=== PATIENT | male | born 1945 | race Caucasian/White ===

== ENCOUNTER 2024-07-23 22:55 | Inpatient (IN) | payer OTHER, SELFPAY ==
[2024-07-23 17:24] VITALS: BP 173/82
[2024-07-23 18:09] VITALS: BMI 25.6
[2024-07-23] MEDS: NSS 1000 IV (18:31)
[2024-07-23] MEDS: ZOFRAN 4 MG IV (18:31)
[2024-07-23] MEDS: MORPHINE SULFATE 4 MG IV (18:32)
[2024-07-23 19:07] LABS: ALT (SGPT) 21 U/L (0-50); AST (SGOT) 23 U/L (17-59); Albumin 5.1 g/dl (3.5-5.0); Alkaline Phosphatase 84 U/L (38-126); Blood Urea Nitrogen 24 mg/dl (9-20); Calcium 10.3 mg/dl (8.4-10.2); Carbon Dioxide 23 mmol/L (22-30); Chloride 101 mmol/L (98-107); Estimated Creatinine Clearance 49 ml/min; Glucose 237 mg/dl (70-99); Lipase 127 U/L (23-300); Potassium 4.9 mmol/L (3.5-5.1); Sodium 140 mmol/L (135-145); Total Bilirubin 0.7 mg/dl (0.2-1.3); Total Protein 7.4 g/dl (6.3-8.2); eGFR > 60.00
[2024-07-23 19:15] LABS: % Basophils 0.3 % (0-2); % Eosinophils 0.1 % (0-6); % Immature Granulocytes 0.3 % (0-0.5); % Lymphocytes 7.4 % (20.5-51.1); % Neutrophils 87.9 % (42.2-75.2); Absolute Lymphocytes 0.6 10^3/uL (1.2-3.4); Absolute Monocytes 0.3 10^3/uL (0.1-0.6); Absolute Neutrophils 6.8 10^3/uL (1.4-6.5); Hematocrit 35.2 % (39.0-52.0); Mean Corp Hgb Conc. 34.1 g/dL (33.0-37.0); Mean Corpuscular Hgb 28.6 pg (27.0-31.0); Mean Platelet Volume 12.3 fL (7.4-10.4); Nucleated Red Blood Cells % 0 % (-); Platelet Count 127 10^3/uL (130-400); Red Blood Cell Count 4.19 10^6/uL (4.70-6.10); Red Cell Dist. Width 13.7 % (11.5-14.5); White Blood Cell Count 7.7 10^3/uL (4.8-10.8)
--- NOTE | 2024-07-23 19:30 | EDRN ---
Report received, introduced myself to patient and , adjusted IV for them, other swenson patient resting comfortably.
--- NOTE | 2024-07-23 19:57 | ED.GENMED ---
History of Present Illness
General
Chief Complaint: Abdominal Symptoms
Time Seen by Provider: 07/23/24 17:37
History of Present Illness
History of Present Illness:
78-year-old male with history of hypertension, diabetes, dementia presenting to the emergency department for generalized abdominal pain. Patient arrives with who notes that since today he has been complaining of abdominal pain and nausea, has
been spitting up. She reports that he had a similar issue about a year ago, had been diagnosed with choledocholithiasis, and became septic from it. He still has his gallbladder in place. Also reports history of pancreatitis in the past. Patient
very limited historian given dementia. No reported recent fever. Patient denying any chest pain or difficulty breathing. No additional surgical history in the past.
Past History
Past History
ED Past Medical History: CAD, HTN, Hypercholesterolemia, NIDDM and Other (Dementia)
ED Past Surgical History: Appendectomy, Cardiac and Other (Hernia repair)
Phy Exam
Physical Exam
Physical Exam:
General: Well-appearing, no clinical signs of dehydration, nontoxic and in no acute distress
HEENT: protecting airway
Neck: appears supple
CV: Normal heart rate, regular rhythm
Resp: No accessory muscle use, no increased work of breathing, lungs clear to auscultation bilaterally
Abd: Soft and non-distended, generalized tenderness, mild distention
Extremities: No deformities, no swelling, no erythema
Neuro: alert, no focal neurologic deficit
: deferred
Rectal: deferred
Psych: Normal affect
Skin: Intact
Course
Orders/Labs/Results
Orders:
Orders
07/23/24 18:12
CT Abd/pelvis W Iv Cont Urgent
Comment:
Reason For Exam: diffuse abdominal pain
0.9% Sodium Chloride 1000 ml [Nss] 1,000 ml IV BOLUS
Morphine Sulfate 4 mg IV NOW STA
Ondansetron Injectable [Zofran] 4 mg IV NOW STA
07/23/24 18:28
Complete Blood Count/With Diff Urgent
07/23/24 18:29
Comprehensive Metabolic Panel Urgent
Lipase Urgent
07/23/24 20:22
HYDROmorphone [Dilaudid] 1 mg IV NOW STA
Abnormal Lab Results
07/23/24 07/23/24
18:28 18:29
RBC 4.19 L 10^6/uL
(4.70-6.10)
Hgb 12.0 L g/dL
(13.0-18.0)
Hct 35.2 L %
(39.0-52.0)
Plt Count 127 L 10^3/uL
(130-400)
MPV 12.3 H fL
(7.4-10.4)
Absolute Neuts (auto) 6.8 H 10^3/uL
(1.4-6.5)
Absolute Lymphs (auto) 0.6 L 10^3/uL
(1.2-3.4)
Neutrophils % 87.9 H %
(42.2-75.2)
Lymphocytes % 7.4 L %
(20.5-51.1)
BUN 24 H mg/dl
(9-20)
Glucose 237 H mg/dl
(70-99)
Calcium 10.3 H mg/dl
(8.4-10.2)
Albumin 5.1 H g/dl
(3.5-5.0)
07/23/24 18:28
07/23/24 18:29
Vital Signs
Initial and Last Documented VS:
Initial Vital Signs
Temp Pulse Resp BP Pulse Ox
98.0 F 65 16 173/82 98
07/23/24 17:24 07/23/24 17:24 07/23/24 17:24 07/23/24 17:24 09/09/24 17:24
Last Documented Vital Signs
Temp Pulse Resp BP Pulse Ox
98.0 F 65 16 160/83 97
07/23/24 17:24 07/23/24 17:24 07/23/24 17:24 07/23/24 21:01 07/23/24 21:01
MDM/Problems Addressed
MDM/Problems Addressed:
78-year-old male with history of dementia, hypertension, and diabetes presenting to the emergency department for abdominal pain and nausea/vomiting, onset today. Vital signs are significant for hypertension.
On exam, patient is in no acute distress, however does appear uncomfortable, spitting up. He is a very limited historian, generalized tenderness to lower abdomen with distention. Concern for intra-abdominal pathology. For this reason we will
obtain urinalysis and CT abdominal imaging. IV fluids, Zofran, morphine administered for patient's symptoms.
20:20 -patient's labs are unremarkable, however still complaining of pain. Will redose. Pending CT abdominal imaging
21:00 - CT shows cholelithiasis and again concern for possible choledocholithiasis. Given persistence of pain and prior history, will admit for MRCP/ERCP. GI made aware
*Critical Care Note
Total Time (30-74mins, 75-104mins- exclusive of procedures): Not Applicable
ED Attending Note
-
Portions of this chart may have been created with voice recognition software.� Occasional wrong word or��sound alike� substitutions may have occurred due to the inherent limitations of voice recognition software.
Discharge Plan
Departure
Prescriptions:
No Action
cyanocobalamin (vitamin B-12) [Vitamin B-12] 1,000 mcg Tablet
1,000 mcg PO HS Qty: 0
aspirin 81 mg Tablet,Delayed Release (Dr/Ec)
81 mg PO DAILY Qty: 0
atenolol 50 mg Tablet
50 mg PO DAILY Qty: 0
rosuvastatin 40 mg Tablet
40 mg PO HS
memantine 5 mg Tablet
5 mg PO BID Qty: 0
mirtazapine 30 mg Tablet
30 mg PO HS Qty: 30 0RF
Patient Comments:
09/29/2023: Per Spouse, Pt's dr increased to 45mg
pioglitazone 30 mg Tablet
30 mg PO DAILY Qty: 30 0RF
insulin glargine [Lantus Solostar U-100 Insulin] 100 unit/mL (3 mL) Insulin Pen
6 unit SC DAILY
Paxlovid 300 mg (150 mg x 2)-100 mg tablets,dose pack
See Rx Instructions .ROUTE .COMPLEX Qty: 30 0RF
Rx Instructions:
take TWO 150 mg tablets of nirmatrelvir with ONE 100 mg tablet of ritonavir twice daily for 5 days
Referrals:
Aram Mojica DO [Family Provider] -
Interventions
Interventions:
*Risk Screen - Suicide Last Done: 07/23/24 18:10
*General Assessment Last Done: 07/23/24 18:10
*Neglect/Abuse Screening Last Done: 07/23/24 18:10
ED- Fall Risk Assessment Last Done: 07/23/24 19:00
*ED COVID-19 Vaccine History Last Done: 07/23/24 18:10
IM-Bfrygk-Vuenzwzoor Assessment Last Done: 07/23/24 18:40
Discharge Date and Time
Print Language: MONGOLIAN
[2024-07-23 20:44] VITALS: BP 175/84
[2024-07-23] MEDS: DILAUDID 1 MG IV (20:49)
--- NOTE | 2024-07-23 20:55 | EDRN ---
Patient was having increased pain, once back from CT, gave pain meds as ordered.
[2024-07-23 21:01] VITALS: BP 160/83
--- NOTE | 2024-07-23 21:14 | HPS.HSE ---
Family Physician
-
Family Physician: Aram Mojica
Chief Complaint
-
abdominal pain associated with N/V
History of Present Illness
78-year-old male with history of hypertension, diabetes, dementia presenting to the emergency department for epigastric pain. Patient arrives with who notes that since today he has been complaining of abdominal pain and nausea. denied vomiting
and diarrhea. denied fever, chills, chest pain, sob. denied HARRIS, dizzy or syncopal episode. denied dysuria or hematuria. Patient very limited historian given dementia.
CT with choledocholithiasis. admitting for further management.
Medical History
Past Medical History
Past Medical History: Reports Other
Additional Past Medical History:
HTN
HLD
dementia
DM
alzheimers
gallstone pancreatitis
Past Surgical History: Reports Other
Additional Past Surgical History:
appendectomy
cardiac stents
quad bypass
cholecystectomy
Social History
Tobacco: Non-smoker
Alcohol: None
Drug: None
Personal:
Living: With Family
Family History
Family History: Not pertinent
Allergies / Home Medications
Allergies reflects when Allergies were last updated in [facility].
Home Medications with original date entered in [facility]
Allergy/Medication List:
Allergies
Allergy/AdvReac Type Severity Reaction Status Date / Time
Sulfa (Sulfonamide Allergy Unknown Verified 07/23/24 17:26
Antibiotics)
Home Medications
aspirin 81 mg tablet,delayed release 81 mg PO DAILY Blood Clot Prevention/Tx ##0 08/27/23
atenolol 50 mg tablet 50 mg PO DAILY Blood Pressure ##0 08/27/23
cyanocobalamin (vitamin B-12) 1,000 mcg tablet (Vitamin B-12) 1,000 mcg PO HS Supplement ##0 08/27/23
rosuvastatin 40 mg tablet 40 mg PO HS High Cholesterol 08/27/23
mirtazapine 30 mg tablet 30 mg PO HS Depression #30 tabs 09/04/23
pioglitazone 30 mg tablet 30 mg PO DAILY Diabetes #30 tabs 09/04/23
insulin glargine 100 unit/mL (3 mL) subcutaneous pen (Lantus Solostar U-100 Insulin) 7 unit SC QPM 11/01/23
insulin aspart U-100 100 unit/mL (3 mL) subcutaneous pen (Novolog FlexPen U-100 Insulin aspart) 5 unit SC AC 07/23/24
memantine 10 mg tablet 10 mg PO BID 07/23/24
Review of Systems
-
Constitutional: Reports No Symptoms
EENT: Reports No Symptoms
Respiratory: Reports No Symptoms
Cardiac: Reports No Symptoms
Abdomen/GI: Reports Abdominal Pain and Nausea
: Reports No Symptoms
Musculoskeletal: Reports No Symptoms
Skin: Reports No Symptoms
Neurological: Reports No Symptoms
Endocrine: Reports No Symptoms
Hematologic/Lymphatic: Reports No Symptoms
Psych: Reports No Symptoms
Physical Exam
Vital Signs
Vital Signs
Temp Pulse Resp BP Pulse Ox
98.0 F 65 16 160/83 97
07/23/24 17:24 07/23/24 17:24 07/23/24 17:24 07/23/24 21:01 07/23/24 21:01
Physical Exam
General: Well Developed, Well Nourished and No Apparent Distress
HEENT: NormoCephalic, Moist mucous membranes and Atraumatic
Respiratory: Clear
Cardiac: S1/S2 and Regular Rhythm; No Murmur or Rub
GI: Soft, Non Tender, Non Distended and Normal Bowel Sounds; No Organomegaly
Rectal: Deferred by Provider
Musculoskeletal: No Clubbing, No Cyanosis and No Edema
Skin: No Rash
Neuro: Nonfocal/grossly intact
Psych: Confused
Laboratory Results
-
07/23/24 18:28
07/23/24 18:29
Laboratory Results
Total Bilirubin 0.7 mg/dl (0.2-1.3) 07/23/24 18:29
AST 23 U/L (17-59) 07/23/24 18:29
ALT 21 U/L (0-50) 07/23/24 18:29
Alkaline Phosphatase 84 U/L (38-126) 07/23/24 18:29
Lipase 127 U/L (23-300) 07/23/24 18:29
Data Reviewed
-
CT Scan: Report Reviewed by me
Impression/Plan
-
#abdominal pain associated with N/V likely from choledocholithiasis
-Possible MRCP/ERCP
-keep NPO
-fluids continued for hydration
-Dilaudid prn for pain
-GI consult
-CT abdomen pelvis with Cholelithiasis and findings suspicious for choledocholithiasis.Apparent attenuation of the left portal vein. Cannot rule out portal vein thrombosis.
#anemia of chronic disease
-hgb stable at 12.0
-no active bleeding
-ctm
#alzhmier's dementia
-memantine, Remeron continued
#HLD
-statin continued
#essential HTN
-Bp stable
-atenolol continued with hold parameter
#type 2 Dm
-sliding scale
-hold NovoLog and Lantus with meals
-sliding scale
#DVT prophylaxis
-Lovenox
#CODE status
-DNR
--- NOTE | 2024-07-23 22:35 | HPS.HSE ---
Addendum entered and electronically signed by Joe Goldberg DO 07/23/24 23:27:
Patient seen and examined independently. Agree with findings an plan as set forth by LAWRENCE Miller.
Patient is a 78y M with PMH significant for dementia, hypertension and DM-II who presents to ED complaining of abdominal pain. History obtained from family at the bedside. notes that patient developed RUQ pain today. No N/V. No noted
fevers / chills. He had admission for cholecystitis / choledocholithiasis in 10/2023. He underwent ERCP with sphincterotomy and stent placement at that time. Eventual cholecystectomy was recommended. Patient has had no similar issues until
today. No other acute complaints or concerns.
Ass:
Cholelithiasis +/- Choledocholithiasis
ASCVD
Benign Hypertension
Dyslipidemia
DM-II
Senile Dementia
Plan:
Admit for further evaluation and treatment.
Supportive care, pain control, etc.
LFTs are normal. CT findings for stones +/- choledocholithiasis.
GI evaluation in the AM.
? MRCP v ERCP. ? Surgery evaluation / cholecystectomy for definitive treatment.
Original Note:
Family Physician
-
Family Physician: Aram Mojica
Chief Complaint
-
abdominal pain
History of Present Illness
78 year old with PMH for alzhmeirs, htn, hld, DM, gallstone pancreatitis, presented to us with left sided abdominal pain since this morning. denied vomiting or diarrhea. stated nauseous. denied fever, chills, chest pain, sob.denied HARRIS, dizzy or
syncopal episode. denied dysuria or hematuria.
CT with choledocholithiasis. admitting for further management.
Medical History
Past Medical History
Past Medical History: Reports Other
Additional Past Medical History:
alzhmiers dementia
HTN
HLD
DM
Past Surgical History: Reports Other
Additional Past Surgical History:
appendectomy
cardiac stents
quad bypass
Social History
Tobacco: Non-smoker
Alcohol: None
Drug: None
Personal:
Living: With Family
Family History
Family History: Not pertinent
Allergies / Home Medications
Allergies reflects when Allergies were last updated in [facility].
Home Medications with original date entered in [facility]
Allergy/Medication List:
Allergies
Allergy/AdvReac Type Severity Reaction Status Date / Time
Sulfa (Sulfonamide Allergy Unknown Verified 07/23/24 17:26
Antibiotics)
Home Medications
aspirin 81 mg tablet,delayed release 81 mg PO DAILY Blood Clot Prevention/Tx ##0 08/27/23
atenolol 50 mg tablet 50 mg PO DAILY Blood Pressure ##0 08/27/23
cyanocobalamin (vitamin B-12) 1,000 mcg tablet (Vitamin B-12) 1,000 mcg PO HS Supplement ##0 08/27/23
rosuvastatin 40 mg tablet 40 mg PO HS High Cholesterol 08/27/23
mirtazapine 30 mg tablet 30 mg PO HS Depression #30 tabs 09/04/23
pioglitazone 30 mg tablet 30 mg PO DAILY Diabetes #30 tabs 09/04/23
insulin glargine 100 unit/mL (3 mL) subcutaneous pen (Lantus Solostar U-100 Insulin) 7 unit SC QPM 11/01/23
insulin aspart U-100 100 unit/mL (3 mL) subcutaneous pen (Novolog FlexPen U-100 Insulin aspart) 5 unit SC AC 07/23/24
memantine 10 mg tablet 10 mg PO BID 07/23/24
Review of Systems
-
Constitutional: Reports No Symptoms
EENT: Reports No Symptoms
Respiratory: Reports No Symptoms
Cardiac: Reports No Symptoms
Abdomen/GI: Reports Abdominal Pain
: Reports No Symptoms
Musculoskeletal: Reports No Symptoms
Skin: Reports No Symptoms
Neurological: Reports No Symptoms
Endocrine: Reports No Symptoms
Hematologic/Lymphatic: Reports No Symptoms
Psych: Reports No Symptoms
Physical Exam
Vital Signs
Vital Signs
Temp Pulse Resp BP Pulse Ox
98.0 F 65 16 160/83 97
07/23/24 17:24 07/23/24 17:24 07/23/24 17:24 07/23/24 21:01 07/23/24 21:01
Physical Exam
General: Well Developed, Well Nourished and No Apparent Distress
HEENT: NormoCephalic, Moist mucous membranes and Atraumatic
Respiratory: Clear
Cardiac: S1/S2 and Regular Rhythm; No Murmur or Rub
GI: Soft, Non Tender, Non Distended and Normal Bowel Sounds; No Organomegaly
Rectal: Deferred by Provider
Musculoskeletal: No Clubbing, No Cyanosis and No Edema
Skin: No Rash
Neuro: AO x 3 and Nonfocal/grossly intact
Psych: Calm
Laboratory Results
-
07/23/24 18:28
07/23/24 18:29
Laboratory Results
Total Bilirubin 0.7 mg/dl (0.2-1.3) 07/23/24 18:29
AST 23 U/L (17-59) 07/23/24 18:29
ALT 21 U/L (0-50) 07/23/24 18:29
Alkaline Phosphatase 84 U/L (38-126) 07/23/24 18:29
Lipase 127 U/L (23-300) 07/23/24 18:29
Data Reviewed
-
CT Scan: Report Reviewed by me
Lab Data: Labs Reviewed by me
Impression/Plan
-
#abdominal pain likely from choledocholithiasis
-CT with Cholelithiasis and findings suspicious for choledocholithiasis. Apparent attenuation of the left portal vein. Cannot rule out portal vein thrombosis.
-NPO
-fluids continued for hydration
-GI consulted for MRCP/ERCP
-Dilaudid prn for pain
#hxt of ERCP with sphincterotomy stone remove and stent placement. stent removed on 11/05
#Coronary Artery Disease s/p Cardiac Stents in 2004 and subsequent CABG in 2012
-asa continued
#Essential Hypertension
-atenolol continued with hold parameter
Hyperlipidemia
-Hold statin in setting of elevated LFTs
Diabetes Mellitus, Type II
-hold NovoLog with meals and Actos
-hold Lantus
-sliding scale
-ctm
#Dementia
-Monitor for mood/behavior changes during hospitalization
-memantine and Remeron continued
#HLD
-statin continued
DVT proph: lovenox
Code Status: DNR
--- NOTE | 2024-07-23 23:13 | EDRN ---
Dr. Goldberg at bedside seeing patient, after that patient is to go upstairs
[2024-07-23 23:53] VITALS: BMI 24.1
[2024-07-24 00:09] LABS: Glucose - Point of Care 222 mg/dl (70-99)
[2024-07-24] MEDS: REMERON 30 MG PO (00:12)
[2024-07-24] MEDS: CRESTOR 40 MG PO (00:12)
[2024-07-24] MEDS: NSS 1000 IV ×2 (00:43→14:09)
[2024-07-24] MEDS: DILAUDID 1 MG IV ×3 (00:43→16:23)
[2024-07-24] MEDS: NOVOLOG FLEXPEN-MODERATE RESISTANCE 3 UNITS SC ×3 (01:41→17:44)
--- NOTE | 2024-07-24 02:58 | PTCARENOTE ---
Pt arrived to unit via stretcher from ED. Pt's and son stayed for initial assessment and assisted with answers. Pt has hx of dementia, AAO to self. reports pt has become increasingly more frustrated with not being able to have his way and
has wondered off from home for longer distances the past wk. Pt is uncooperative with some care at this time with personal care and refusing assistance from staff. Pt has poor safety awareness and unsteady gait. Bed alarm is placed and high falls.
Pt is not using his call paulson . Bed in lowest position and call paulson is within reach bed alarm activated.
[2024-07-24 05:51] VITALS: BP 137/66
[2024-07-24 06:03] LABS: Glucose - Point of Care 202 mg/dl (70-99)
--- NOTE | 2024-07-24 06:53 | CON.GI ---
Addendum entered and electronically signed by Shekhar Forrest DO 07/24/24 12:36:
I saw and examined the patient.
The ACID WASH OPERATOR's note was reviewed and I agree with the note.
Comment: Mr. Kay is a 78 y.o male with past medical history of HTN, HLD, NIDDM, hx of CAD s/p prior CABG, thrombocytopenia, chronic dementia and history of choledocholithiasis complicated by ascending cholangitis with E coli bacteremia and
biliary / gallstone pancreatitis (s/p ERCP 08/2023 w/ sphincterotomy and stent placement, s/p repeat ERCP 10/2023 with stent removal) who presented to the ED with abdominal pain. History is quite limited due to his mental status and chronic
dementia. In speaking with family, further prior surgical intervention was postponed given his prolonged hospitalization with sepsis and deconditioning since that time. Notes previous abdominal pain back in November but self-resolved in one day
(lasted few hours). No further recurrent abdominal since this current presentation. Now with severe, epigastric abdominal pain with associated nausea/vomiting. Afebrile and HD-stable in ED with grossly normal labs including LFTs with AST 23, ALT 21,
ALP 84 and T Bili 0.7 along with lipase 127. CBC without leukocytosis with WBC 7.7, Hgb 12.[address] Abd/pelvis w/ IV contrast revealed cholelithiasis and borderline CBD duct dilatation up to 8 mm concerning for filling defects within
distal CBD (versus post-cholecystectomy) along with attenuation of the left PV and unable to rule out PVT along with few scattered incidental hypoattenuating hepatic lesions (felt 2/2 cysts). Etiology suspicious for recurrent choledocholithiasis
given CT findings with possible filling defect and biliary ductal dilatation with an intact GB with stones. However, LFTs remain wnl without any evidence of biliary obstruction. Unclear if there is a PVT as patient is without any prior chronic liver
disease / cirrhosis and would expect elevations in transaminases if this was an acute PVT. For both of these reasons, patient would benefit from further evaluation with a MRI/MRCP WWO contrast to better evaluate his biliary tree along with ensuring
patent vasculature. If MRI is limited (due to movement given his dementia), could consider obtaining Abd US w/ Duplex as well but prefer obtaining MRI/MRCP. Otherwise, no symptoms at this time to suggest biliary sepsis and/or cholangitis.
Recommendations:
- Trend LFTs with total fractionated bilirubin q daily
- Agree with MRI/MRCP WWO contrast for further evaluation. If MRI/MRCP is limited (due to motion), could consider Abd US w/ Duplex if unable to tolerate MRI given patient's mental status, but prefer MRI/MRCP
- No indication for IV abx at this time
- Monitor closely for leukocytosis, fevers, or other signs of decompensation
- If MRI/MRCP does reveal recurrent choledocholithiasis, will discuss timing of ERCP along with eventual surgical consultation for consideration of lap betty
- Pt's updated by Tiki Toledo NP. Will continue to update family once MRI/MRCP is obtained
- Rest of care as outlined below
Inpatient GI team will continue to follow along closely.
Original Note:
Consultation
-
Date/Time Consultation Requested: 07/23/24 2330
Date/Time Consultation Performed: 07/24/24 0700
Requesting Provider: Joe Goldberg DO
Performing Provider: LAWRENCE Mendoza, Shekhar Forrest DO
Reason for Consultation: abdominal pain
Medical History
Chief Complaint / HPI
Chief Complaint: abdominal pain
History of Present Illness:
Pt is a 78yo with hx CAD prior CABG, HTN, hyperlipidemia, NIDDM, former ETOH use til 1 year ago, thrombocytopenia, dementia with hx cholangitis with ecoli bacteremia in August 2023 with ERCP with choledocholithiasis with sphincterotomy and stone
removal with stent placement. Pt returned in October for stent removal and recommended surgical evaluation. He now returns with abdominal pain and nausea. On admission noted with bili 0.7, AST 23, ALT 21, alk phos [address] on
admission with concern for cholelithiasis with suspicion for choledocholithiasis with CBD 8mm and gallbladder with small stone. Also noted portal vein attenuation cannot rule out PVT.
At this time patient with dementia unable to provide history. In reviewing with family long recovery from sepsis. He did have one episode of abdominal pain in November for a few hours then resolved. Per surgical evaluation was held as pt
had prolonged recovery with sepsis with wt loss and has now recovered. He now returns with abdominal pain started at 10 am 07/23. Pain was associated with spitting up but no note fever or vomiting. No decreased appetite, change in stool or urine
color, diarrhea, constipation, blood or black in stool leading up to pain.
Past Medical History
Past Medical History: CAD, HTN, Hypercholesterolemia, NIDDM, Psychiatric (dementia) and Other (cholangitis with Ecoli bacteremia, gallstone panc., s/p ERCP with sphincterotomy, stone removal and stent placement, thrombocytopenia, former ETOH use)
Past Surgical History: Appendectomy and Cardiac (CABG)
Social History
Tobacco: Non-Smoker
Alcohol: Former (stopped 1 year ago )
Drug: None
Personal:
Living: With Family
Employment: Retired
Family History
Family History: Reviewed & Not Pertinent
Allergies / Home Medications
Allergy/AdvReac Type Severity Reaction Status Date / Time
Sulfa (Sulfonamide Allergy Unknown Verified 07/23/24 17:26
Antibiotics)
�Medication �Instructions �Recorded
aspirin 81 mg tablet,delayed 81 mg PO DAILY Blood Clot 08/27/23
release Prevention/Tx ##0
atenolol 50 mg tablet 50 mg PO DAILY Blood Pressure ##0 08/27/23
cyanocobalamin (vitamin B-12) 1,000 mcg PO HS Supplement ##0 08/27/23
1,000 mcg tablet (Vitamin B-12)
rosuvastatin 40 mg tablet 40 mg PO HS High Cholesterol 08/27/23
mirtazapine 30 mg tablet 30 mg PO HS Depression #30 tabs 09/04/23
pioglitazone 30 mg tablet 30 mg PO DAILY Diabetes #30 tabs 09/04/23
insulin glargine 100 unit/mL (3 7 unit SC QPM 11/01/23
mL) subcutaneous pen (Lantus
Solostar U-100 Insulin)
insulin aspart U-100 100 unit/mL 5 unit SC AC 07/23/24
(3 mL) subcutaneous pen (Novolog
FlexPen U-100 Insulin aspart)
memantine 10 mg tablet 10 mg PO BID 07/23/24
Review of Systems
-
Unable to obtain full review of systems at this time due to: Dementia
History Source: Patient and Family
Constitutional: Reports Weight Loss (with sepsis in August but gained weight back )
EENT: Reports No Symptoms
Abdomen/GI: Reports Abdominal Pain and Nausea
: Reports No Symptoms
Musculoskeletal: Reports No Symptoms
Skin: Reports No Symptoms
Neurological: Reports Weakness
Endocrine: Reports No Symptoms
Hematologic/Lymphatic: Reports No Symptoms
Vital Signs
Temp Pulse Resp BP Pulse Ox
99.6 F 71 16 137/66 100
07/23/24 23:53 07/24/24 05:51 07/24/24 05:51 07/24/24 05:51 07/23/24 23:53
Physical Exam
Exam
General: Well Developed, Well Nourished and No Apparent Distress
HEENT: Normocephalic and Anicteric
Respiratory: Clear
Cardiac: Regular Rhythm
GI: Soft, Non Distended and Tender (epigastric tenderness )
Musculoskeletal: No Clubbing and No Cyanosis
Skin: Warm and Dry
Neuro: Awake, Alert and AO x 3
Psych: Calm
Results
WBC 7.7 10^3/uL (4.8-10.8) 07/23/24 18:28
Hgb 12.0 g/dL (13.0-18.0) L 07/23/24 18:28
Hct 35.2 % (39.0-52.0) L 07/23/24 18:28
MCV 84.0 fL (80.0-94.0) 07/23/24 18:
Plt Count 127 10^3/uL (130-400) L 07/23/24 18:
Absolute Neuts (auto) 6.8 10^3/uL (1.4-6.5) H 07/23/24 18:
Sodium 140 mmol/L (135-145) 07/23/24 18:
Potassium 4.9 mmol/L (3.5-5.1) 07/23/24 18:
Chloride 101 mmol/L (98-107) 07/23/24 18:
Carbon Dioxide 23 mmol/L (22-30) 07/23/24 18:
BUN 24 mg/dl (9-20) H 07/23/24 18:
Creatinine 1.2 mg/dL (0.7-1.3) 07/23/24 18:
Calcium 10.3 mg/dl (8.4-10.2) H 07/23/24 18:
Total Bilirubin 0.7 mg/dl (0.2-1.3) 07/23/24 18:
AST 23 U/L (17-59) 07/23/24 18:
ALT 21 U/L (0-50) 07/23/24 18:
Alkaline Phosphatase 84 U/L (38-126) 07/23/24 18:
Lipase 127 U/L (23-300) 07/23/24 18:
Diagnostic Image Results:
07/23/24 CT Abd/pelvis W Iv Cont
1. Cholelithiasis and findings suspicious for choledocholithiasis.
2. Apparent attenuation of the left portal vein. Cannot rule out portal vein thrombosis.
Prior GI Procedures:
Colonoscopy: Hx colonoscopy [place] several years.
ERCP08/2023 [facility] Adolph - Normal esophagus.
- No gross lesions in the entire stomach.
- Significantly congested duodenal mucosa.
- The major papilla was adjacent to a diverticulum.
- The major papilla appeared to be small.
- A filling defect consistent with a stone was seen on
the cholangiogram.
- The common bile duct was mildly dilated.
- Choledocholithiasis was found. Complete removal was
accomplished by biliary sphincterotomy and balloon
extraction.
- A biliary sphincterotomy was performed.
- Major papilla was successfully dilated.
- The biliary tree was swept.
- One plastic stent was placed into the common bile
duct.
ERCP:10/2023 Pradip Farfan,
- One stent from the biliary tree was seen in the
major papilla.
- Prior biliary sphincterotomy appeared open.
- Cholecystolithiasis was found.
- One stent was removed from the biliary tree.
- The biliary tree was swept and sludge and nothing
were found.
Assessment / Plan
-
Pt is a 78yo with hx CAD prior CABG, HTN, hyperlipidemia, NIDDM, former ETOH use til 1 year ago, thrombocytopenia, dementia with hx cholangitis with ecoli bacteremia in August 2023 with ERCP with choledocholithiasis with sphincterotomy and stone
removal with stent placement. Pt returned in October for stent removal and recommended surgical evaluation. He now returns with abdominal pain and nausea. On admission noted with bili 0.7, AST 23, ALT 21, alk phos [address] on
admission with concern for cholelithiasis with suspicion for choledocholithiasis with CBD 8mm and gallbladder with small stone. Also noted portal vein attenuation cannot rule out PVT.
-epigastric abdominal pain
-CT with cholelithiasis possible choledocholithiasis and possible PVT
-hx ecoli sepsis with cholangitis choledocholithiasis s/p ERCP with stone removal and stent placement 09/05 with follow up stent removal 10/2023
other med problems:
-thrombocytopenia
-hx prior ETOH use
-dementia
-CAD with prior CABG
-NIDDM
-HTN
-hyperlipidemia
PLAN:
etiology of pain related to choledocholithiasis, cholecystitis, PVT vs other
still with pain today
await AM labs stable on admission - cont to trend
plan for MRI/ MRCP for further eval - if + stone may need repeat ERCP
NPO
I reviewed with updated Tori [phone] - would like to review MRI then decide on further testing-- she is considering surgical eval pending MRI results
-
-
Thank you for consultation and allowing me to participate in the patient's care. Please call the community service organization director GI physician during the after hours with any questions or concerns.
[2024-07-24 07:00] VITALS: BP 115/67
[2024-07-24 07:34] LABS: Hematocrit 34.1 % (39.0-52.0); Hemoglobin 11.8 g/dL (13.0-18.0); Mean Corp Hgb Conc. 34.6 g/dL (33.0-37.0); Mean Corpuscular Hgb 28.6 pg (27.0-31.0); Mean Corpuscular Volume 82.6 fL (80.0-94.0); Mean Platelet Volume 11.9 fL (7.4-10.4); Platelet Count 119 10^3/uL (130-400); Red Blood Cell Count 4.13 10^6/uL (4.70-6.10); Red Cell Dist. Width 13.7 % (11.5-14.5); White Blood Cell Count 10.8 10^3/uL (4.8-10.8)
[2024-07-24 07:55] LABS: Blood Urea Nitrogen 18 mg/dl (9-20); Carbon Dioxide 22 mmol/L (22-30); Chloride 102 mmol/L (98-107); Estimated Creatinine Clearance 61 ml/min; Glucose 178 mg/dl (70-99); Potassium 4.3 mmol/L (3.5-5.1); Sodium 140 mmol/L (135-145); eGFR > 60.00
[2024-07-24 08:25] LABS: ALT (SGPT) 17 U/L (0-50); AST (SGOT) 19 U/L (17-59); Albumin 4.6 g/dl (3.5-5.0); Alkaline Phosphatase 78 U/L (38-126); Direct Bilirubin 0.2 mg/dl (0.0-0.4); Lipase 59 U/L (23-300); Total Bilirubin 0.7 mg/dl (0.2-1.3); Total Protein 6.6 g/dl (6.3-8.2)
[2024-07-24] MEDS: ASPIR LOW (ENTERIC COATED) 81 MG PO (08:33)
[2024-07-24] MEDS: NAMENDA 10 MG PO ×2 (08:34→20:12)
[2024-07-24] MEDS: TENORMIN 50 MG PO (08:34)
--- NOTE | 2024-07-24 09:07 | W.PN.HOSP.TC ---
Today's Communication/Plan
-
For MRCP today
Assessment / Plan
Assessment / Plan
HPI: 78y M with PMH significant for dementia, hypertension and DM-II who presents to ED complaining of abdominal pain. History obtained from family at the bedside. notes that patient developed RUQ pain today. No N/V. No noted fevers /
chills. He had admission for cholecystitis / choledocholithiasis in 10/2023. He underwent ERCP with sphincterotomy and stent placement at that time.
#Cholelithiasis with suspected choledocholithiasis
#Hx of ERCP with sphincterotomy stone remove and stent placement. stent removed on 11/05
Appreciate GI input, patient for MRCP today
#Coronary Artery Disease s/p Cardiac Stents in 2004 and subsequent CABG in 2012
-asa continued
#Essential Hypertension
-atenolol continued with hold parameter
Hyperlipidemia
-Hold statin
Diabetes Mellitus, Type II
-A1C 7.1, Resume Lantus
-hold NovoLog with meals and Actos
-sliding scale
#Dementia
-Monitor for mood/behavior changes during hospitalization
-memantine and Remeron continued
#HLD
-statin continued
DVT proph: lovenox
Code Status: DNR
Updated at bedside 07/24
Total time spent to see the patient on the floor, examine the patient, review data and lab results, discuss treatment plan with patient, nursing staff around 40 minutes.
Physical Exam
General: No acute distress
HEENT: Normocephalic, Atraumatic, EOMI, MMM
Respiratory: Clear to Auscultation bilaterally
Cardiac: Normal S1/S2, Regular Rate and Rhythm
GI: Soft, tender at right upper quadrant, Nondistended, Normal Bowel Sounds
Extremities: No Clubbing, Cyanosis, or Edema
Neuro: Pleasantly confused
Psych: Calm, Cooperative
Derm: No Visible lesions
Anticipated Discharge: 24 - 48 hours
Subjective/Interval History
-
Date of Service: July 24, 2024
Patient reports right upper quadrant abdominal pain. No fever, no vomiting.
Objective Data
-
Labs:
Laboratory Results
07/24/24 07/24/24
06:11 06:12
WBC 10.8
Hgb 11.8 L
Hct 34.1 L
Plt Count 119 L
Sodium 140
Potassium 4.3
Chloride 102
Carbon Dioxide 22
BUN 18
Creatinine 1.0
Glucose 178 H
Calcium 10.0
Total Bilirubin 0.7
AST 19
ALT 17
Alkaline Phosphatase 78
Vital Signs:
Vital Signs
Temp Pulse Resp BP Pulse Ox
97.8 F 90 18 115/67 96
07/24/24 07:00 07/24/24 07:00 07/24/24 07:00 07/24/24 07:00 07/24/24 07:00
I&O
07/23/24 07/24/24 07/25/24
06:59 06:59 06:59
Intake Total 480 / 480
Balance 480 / 480
[2024-07-24 09:23] LABS: Glycohemoglobin (HgbA1c) 7.1 % (4.0-5.6)
[2024-07-24 12:04] LABS: Glucose - Point of Care 199 mg/dl (70-99)
--- NOTE | 2024-07-24 13:32 | W.PN.UPDATE ---
Addendum entered and electronically signed by LAWRENCE Coppola 07/24/24 15:37:
spoke with discussed sedation with MRI if US not helpful. LFT's remains normal
Addendum entered and electronically signed by LAWRENCE Coppola 07/24/24 13:49:
I left message for with update
Original Note:
Update Note
Progress Note Update
Pt unable to tolerate MRI will change to US with doppler may need to consider EUS if unrevealing
[2024-07-24] MEDS: NOVOLOG FLEXPEN-MODERATE RESISTANCE 1 UNITS SC (14:06)
--- NOTE | 2024-07-24 14:34 | CM ---
Met with pt, his daughter and other family members at bedside
Pt with dementia, confused. Lives with his daughter Tori in a 2 story [place]; 1 step to enter, 15 steps to 2nd fl
Pt can ambulate without device, feeds self, some assist with bathing/dressing
Has aid 2x's/wk for 2 hrs thru [employer]
DME - shower chair
SNF - denies past hx
HH - has had [facility] in past
Has ride at d/c
PCP - Aram Mojica
Pharm - [facility]
PT/OT pending
Plan - anticipate home with VN vs no needs
[2024-07-24 15:00] VITALS: BP 134/63
[2024-07-24 17:42] LABS: Glucose - Point of Care 200 mg/dl (70-99)
[2024-07-24] MEDS: LANTUS 0.07 UNITS SC (17:43)
[2024-07-24] MEDS: LOVENOX SC (17:44)
[2024-07-24] MEDS: LOVENOX 40 MG SC (17:48)
[2024-07-24] MEDS: CRESTOR PO ×2 (21:35→23:13)
[2024-07-24] MEDS: REMERON PO ×2 (21:35→23:13)
[2024-07-24 23:10] VITALS: BP 140/58
[2024-07-25] VITALS (7 sets, daily range): BP systolic 125–163; BP diastolic 53–87
[2024-07-25 00:16] LABS: Glucose - Point of Care 163 mg/dl (70-99)
[2024-07-25] MEDS: NOVOLOG FLEXPEN-MODERATE RESISTANCE 1 UNITS SC ×2 (00:22→05:55)
[2024-07-25] MEDS: NSS 1000 IV ×2 (04:32→22:27)
[2024-07-25 05:55] LABS: Glucose - Point of Care 183 mg/dl (70-99)
[2024-07-25 06:31] LABS: Hematocrit 34.7 % (39.0-52.0); Hemoglobin 11.9 g/dL (13.0-18.0); Mean Corp Hgb Conc. 34.3 g/dL (33.0-37.0); Mean Corpuscular Hgb 29.4 pg (27.0-31.0); Mean Corpuscular Volume 85.7 fL (80.0-94.0); Mean Platelet Volume 12.3 fL (7.4-10.4); Platelet Count 105 10^3/uL (130-400); Red Blood Cell Count 4.05 10^6/uL (4.70-6.10); Red Cell Dist. Width 13.8 % (11.5-14.5); White Blood Cell Count 11.8 10^3/uL (4.8-10.8)
[2024-07-25 06:39] LABS: INR 1.31; PT 16.1 Sec (11.4-14.6)
[2024-07-25 07:16] LABS: ALT (SGPT) 14 U/L (0-50); AST (SGOT) 18 U/L (17-59); Albumin 4.1 g/dl (3.5-5.0); Alkaline Phosphatase 75 U/L (38-126); Blood Urea Nitrogen 16 mg/dl (9-20); Calcium 9.4 mg/dl (8.4-10.2); Carbon Dioxide 22 mmol/L (22-30); Chloride 102 mmol/L (98-107); Direct Bilirubin 0.2 mg/dl (0.0-0.4); Estimated Creatinine Clearance 55 ml/min; Glucose 172 mg/dl (70-99); Potassium 4.3 mmol/L (3.5-5.1); Sodium 139 mmol/L (135-145); Total Bilirubin 1.4 mg/dl (0.2-1.3); Total Protein 6.3 g/dl (6.3-8.2); eGFR > 60.00
--- NOTE | 2024-07-25 08:25 | W.PN.GI.CBS2 ---
Today's Communication / Plan
-
Abd US limited/incomplete as below, unable to get MRI/MRCP. Plan for EUS +/- ERCP with Dr. Farfan today given concern for recurrent choledocholithiasis. Recommend general surgery consultation for consideration of lap betty. Rest of care as outlined
below. Discussed with family extensively this AM.
Assessment / Plan
-
#Epigastric Abdominal Pain
#CT c/f Choledocholithiasis
#Hx of Choledocholithiasis c/b
#Ascending Cholangitis w/ E Coli Bacteremia (s/p ERCP 08/2023)
#Cholelithiasis
#Hx of CABG
Mr. Kay is a 78 y.o male with past medical history of HTN, HLD, NIDDM, hx of CAD s/p prior CABG, thrombocytopenia, chronic dementia and history of choledocholithiasis complicated by ascending cholangitis with E coli bacteremia and biliary /
gallstone pancreatitis (s/p ERCP 08/2023 w/ sphincterotomy and stent placement, s/p repeat ERCP 10/2023 with stent removal) who presented to the ED with abdominal pain. History is quite limited due to his mental status and chronic dementia. In
speaking with family, he was recommended for a lap betty during his previous hospitalization but surgical intervention was postponed given his prolonged hospitalization with sepsis and deconditioning since that time. Family reports previous
abdominal pain back in November but self-resolved in one day (lasted few hours). No further recurrent abdominal since this current presentation. Now with severe, epigastric abdominal pain with associated nausea/vomiting. Afebrile and HD-stable in ED
with grossly normal labs including LFTs with AST 23, ALT 21, ALP 84 and T Bili 0.7 along with lipase 127. CBC without leukocytosis with WBC 7.7, Hgb 12.0 [address]
CT Abd/pelvis 07/23/24 w/ IV contrast revealed cholelithiasis and borderline CBD duct dilatation up to 8 mm concerning for filling defects within distal CBD, gallbladder stone, and attenuation of the left PV and unable to rule out PVT along with few
scattered incidental hypoattenuating hepatic lesions (felt 2/2 cysts). Etiology suspicious for recurrent choledocholithiasis given CT findings with possible filling defect and biliary ductal dilatation along with his previous history of stones c/b
cholangitis in the past. However, LFTs remain wnl but may not be fully obstructed given his recent endoscopic sphincterotomy. Unclear if there is a PVT as patient is without any prior chronic liver disease / cirrhosis and would expect elevations in
transaminases if this was an acute PVT (although doubt clinically). Otherwise, no symptoms at this time to suggest biliary sepsis and/or cholangitis.
Abdominal US w/ Dopplers 07/24/2024:
Incomplete exam due to patient intolerance.
1. Patent hepatic vasculature with appropriate directional flow
2. No intra- or extrahepatic biliary ductal dilatation with the visualized portion of the common duct measuring 3.5 mm. No gallstones, gallbladder wall thickening, pericholecystic fluid or sonographic Garcia's sign.
Recommendations:
- Etiology still highly suspicious for choledocholithiasis despite normal LFTs but has prior endoscopic sphincterotomy (ie stone may be ball-valving) versus passed stone given resolved abd pain
- Abd US unremarkable as above (however very limited/incomplete exam) and CT concerning for filling defects within distal CBD with associated biliary ductal dilatation
- Unable to obtain repeat MRI/MRCP (as previously cancelled on 07/24 due to movement / mental status)
- I do think the patient warrants repeat imaging as not to miss a retained, ball-valving stone given his previous episode of cholangitis and bacteremia
- D/w Dr. Farfan this AM, plan for EUS +/- ERCP (if stone or sludge were to be found) today, 07/25/2024, as this is the best option
- Discussed with patient's son (Norm) extensively and wishes to proceed. Patient's (Lois) able to consent for procedure- [phone]
- Keep NPO
- Continue to trend daily LFTs
- Pain control PRN
- Recommend general surgery consult for consideration of lap betty, defer timing to general surgery
- Rest of care per primary team
Discussed with family extensively along with primary internal medicine team this AM.
GI will continue to follow while inpatient.
Subjective
Subjective
Date of Service: July 25, 2024
- No acute events overnight
- Abd US w/ Dopplers 07/24/24: (Incomplete exam due to patient tolerance), patent hepatic vasculature with appropriate flow, no biliary ductal dilatation with CBD 3.5 mm, limited visualization of pancreas
- LFTs remain wnl
Resting comfortably in bed, denies any further abdominal pain. No nausea or vomiting. Patient's son (Norm) at bedside and reviewed his current hospital course along with pursuing next steps for MRI/MRCP given limited Abd US.
Objective
Data Reviewed
Laboratory Data:
Laboratory Results
07/25/24 05:00
07/25/24 05:00
Laboratory Results
PT 16.1 Sec (11.4-14.6) H 07/25/24 05:00
INR 1.31 07/25/24 05:00
Total Bilirubin 1.4 mg/dl (0.2-1.3) H 07/25/24 05:00
AST 18 U/L (17-59) 07/25/24 05:00
ALT 14 U/L (0-50) 07/25/24 05:00
Alkaline Phosphatase 75 U/L (38-126) 07/25/24 05:00
Lipase 59 U/L (23-300) 07/24/24 06:11
Vital Signs and I&O:
Vital Signs
Temp Pulse Resp BP Pulse Ox
99.3 F 81 20 140/58 100
07/24/24 23:10 07/24/24 23:10 07/24/24 23:10 07/24/24 23:10 07/24/24 23:22
I&O
07/24/24 07/25/24 07/26/24
06:59 06:59 06:59
Intake Total 480 / 480 960 / 960
Output Total 100 / 100
Balance 480 / 480 860 / 860
Physical Exam
Physical Exam
HEENT: Anicteric and Moist mucous membranes
Cardiology: Normal Sinus Rhythm
Pulmonary: Clear
GI: Soft, Non Distended and Flat
Extremities: No Edema
Neuro: Non Focal and Other (AAOx0)
--- NOTE | 2024-07-25 08:27 | W.PN.HOSP.TC ---
Today's Communication/Plan
-
For EUS and poss ERCP with Dr. Farfan today
Assessment / Plan
Assessment / Plan
HPI: 78y M with PMH significant for dementia, hypertension and DM-II who presents to ED complaining of abdominal pain. History obtained from family at the bedside. notes that patient developed RUQ pain today. No N/V. No noted fevers /
chills. He had admission for cholecystitis / choledocholithiasis in 10/2023. He underwent ERCP with sphincterotomy and stent placement at that time.
#Cholelithiasis with suspected choledocholithiasis
#Hx of ERCP with sphincterotomy stone remove and stent placement. stent removed on 11/05
Appreciate GI input, patient for EUS and poss ERCP with Dr. Farfan today
Consult general surgery
#Coronary Artery Disease s/p Cardiac Stents in 2004 and subsequent CABG in 2012
-asa continued
#Essential Hypertension
-atenolol continued with hold parameter
Hyperlipidemia
-Resumed statin
Diabetes Mellitus, Type II
-A1C 7.1, Resumed Lantus
-hold NovoLog with meals and Actos
-sliding scale
#Dementia
-Monitor for mood/behavior changes during hospitalization
-memantine and Remeron continued
#HLD
-statin continued
DVT proph: lovenox
Code Status: DNR
Updated at bedside 07/24
Updated son at bedside 07/25
Total time spent to see the patient on the floor, examine the patient, review data and lab results, discuss treatment plan with patient, nursing staff around 50 minutes.
Physical Exam
General: No acute distress
HEENT: Normocephalic, Atraumatic, EOMI, MMM
Respiratory: Clear to Auscultation bilaterally
Cardiac: Normal S1/S2, Regular Rate and Rhythm
GI: Soft, tender at right upper quadrant, Nondistended, Normal Bowel Sounds
Extremities: No Clubbing, Cyanosis, or Edema
Neuro: Pleasantly confused
Psych: Calm, Cooperative
Derm: No Visible lesions
Anticipated Discharge: 24 - 48 hours
Subjective/Interval History
-
Date of Service: July 24, 2024
Patient denies abdominal pain at present. No fever, no vomiting.
Objective Data
-
Labs:
Laboratory Results
07/24/24 07/24/24
06:11 06:12
WBC 10.8
Hgb 11.8 L
Hct 34.1 L
Plt Count 119 L
Sodium 140
Potassium 4.3
Chloride 102
Carbon Dioxide 22
BUN 18
Creatinine 1.0
Glucose 178 H
Calcium 10.0
Total Bilirubin 0.7
AST 19
ALT 17
Alkaline Phosphatase 78
Vital Signs:
Vital Signs
Temp Pulse Resp BP Pulse Ox
98.4 F 90 18 115/67 96
07/24/24 12:00 07/24/24 07:00 07/24/24 07:00 07/24/24 07:00 07/24/24 07:00
I&O
07/23/24 07/24/24 07/25/24
06:59 06:59 06:59
Intake Total 480 / 480
Balance 480 / 480
[2024-07-25] MEDS: ASPIR LOW (ENTERIC COATED) 81 MG PO (09:02)
[2024-07-25] MEDS: TENORMIN 50 MG PO (09:02)
[2024-07-25] MEDS: NAMENDA 10 MG PO ×2 (09:02→20:37)
[2024-07-25] MEDS: OFIRMEV 100 IV (11:05)
[2024-07-25 12:01] LABS: Glucose - Point of Care 206 mg/dl (70-99)
[2024-07-25] MEDS: NOVOLOG FLEXPEN-MODERATE RESISTANCE 3 UNITS SC (13:02)
--- NOTE | 2024-07-25 14:07 | CM ---
Case management following for discharge planning
Chart reviewed
Unable to complete MRI/MRCP
Poss consult to General Surgery
PT/OT recs pending
Plan - Anticipate home no needs vs with HH when medically stable
[2024-07-25 16:57] LABS: Glucose - Point of Care 148 mg/dl (70-99)
[2024-07-25] MEDS: NOVOLOG FLEXPEN-MODERATE RESISTANCE SC (17:00)
--- NOTE | 2024-07-25 17:15 | W.PN.UPDATE ---
Update Note
Progress Note Update
UPDATE NOTE:
I personally reviewed with the family multiple times throughout the day regarding the plan for further endoscopic procedures as well as Tiki Toledo NP, regarding the plans for EUS with possible ERCP. I personally called patient's son, Norm, twice
early this morning as well as at the bedside this morning about the plan for EUS with possible ERCP. Discussed with family again this afternoon as they reported 'no one updated them' and per nursing 'unable to consent for procedure.' Spent > 20
minutes again this afternoon. Plan for EUS with possible ERCP today. Discussed with patient's nurse, Dr. Farfan along with primary internal medicine team.
[2024-07-25] MEDS: NSS IV (17:17)
--- NOTE | 2024-07-25 18:00 | PTCARENOTE ---
Family ( and Son),out to the desk to speak with RN multiple times throughout the shift. RN in to see Pt and update family throughout the day regarding plan of care. Emotional support given as Pt has Dementia and is confused and difficult to
direct at times. Medical Staff updated with family requests.
--- NOTE | 2024-07-25 18:06 | PTCARENOTE ---
Pt transported to the GI lab via stretcher. Blood sugar was 145 at 1700 prior to transport. Pt's and son to GI lab to sign consent. Verbal report given to GI RN.
--- NOTE | 2024-07-25 19:40 | PTCARENOTE ---
pt returned from Gi lab via stretcher. was able to assist pt back to bed. VSS. IVF infusing. at bedside. Pt resting comfortably.
[2024-07-25] MEDS: PROTONIX 40 MG PO (20:37)
[2024-07-25] MEDS: LOVENOX 40 MG SC (20:37)
[2024-07-25] MEDS: LANTUS 0.07 UNITS SC (20:39)
[2024-07-25 20:40] LABS: Glucose - Point of Care 190 mg/dl (70-99)
[2024-07-25] MEDS: TORADOL 15 MG IV (20:40)
[2024-07-25] MEDS: CRESTOR 40 MG PO (20:40)
[2024-07-25] MEDS: REMERON 30 MG PO (20:40)
[2024-07-25 23:56] LABS: Glucose - Point of Care 215 mg/dl (70-99)
[2024-07-26] VITALS (10 sets, daily range): BP systolic 0–142; BP diastolic 47–96
[2024-07-26] MEDS: NOVOLOG FLEXPEN-MODERATE RESISTANCE 3 UNITS SC (00:07)
[2024-07-26] MEDS: TYLENOL 1000 MG PO (00:45)
[2024-07-26] MEDS: BENADRYL 12.5 MG IV (01:25)
[2024-07-26 06:36] LABS: Hematocrit 31.2 % (39.0-52.0); Hemoglobin 10.8 g/dL (13.0-18.0); Mean Corp Hgb Conc. 34.6 g/dL (33.0-37.0); Mean Corpuscular Hgb 28.5 pg (27.0-31.0); Mean Corpuscular Volume 82.3 fL (80.0-94.0); Mean Platelet Volume 12.4 fL (7.4-10.4); Platelet Count 99 10^3/uL (130-400); Red Blood Cell Count 3.79 10^6/uL (4.70-6.10); Red Cell Dist. Width 13.5 % (11.5-14.5)
[2024-07-26 06:53] LABS: Blood Urea Nitrogen 20 mg/dl (9-20); Calcium 8.8 mg/dl (8.4-10.2); Carbon Dioxide 20 mmol/L (22-30); Chloride 106 mmol/L (98-107); Estimated Creatinine Clearance 47 ml/min; Glucose 173 mg/dl (70-99); Potassium 3.7 mmol/L (3.5-5.1); Sodium 138 mmol/L (135-145); eGFR 56.93
[2024-07-26 07:10] LABS: Glucose - Point of Care 161 mg/dl (70-99)
[2024-07-26 07:23] LABS: ALT (SGPT) 302 U/L (0-50); AST (SGOT) 335 U/L (17-59); Albumin 3.3 g/dl (3.5-5.0); Alkaline Phosphatase 241 U/L (38-126); Direct Bilirubin 2.5 mg/dl (0.0-0.4); Total Bilirubin 4.1 mg/dl (0.2-1.3); Total Protein 5.5 g/dl (6.3-8.2)
--- NOTE | 2024-07-26 08:55 | W.PN.GI.CBS2 ---
Addendum entered and electronically signed by Bryanna Madison DO 07/26/24 16:12:
The patient was seen and examined by me independently in collaboration with the nurse practitioner.
Past medical history/social history/medications/allergies/family history reviewed.
Lab data and imaging data reviewed.
Patient seen in follow-up. Unable to tolerate MRI yesterday, the decision was made to proceed with EUS, which demonstrated choledocholithiasis. He subsequently underwent a successful ERCP with removal of stone via balloon extraction. He was also
noted to have duodenal erosions, recommended to treat with protonix 40mg BID. This AM, he has only mild tenderness, improved from prior exam.
AM labs show increase in LFTs-- possibly 2/2 contrast injection and manipulation during ERCP. Recommend repeat LFTs this afternoon. General Surgery consulted for evaluation of cholecystectomy, planned for OR later today. Please reconsult GI if IOC
is positive.
PPI BID x 8 weeks upon discharge.
GI will sign off. Please call with questions.
Original Note:
Today's Communication / Plan
-
s/p EUS/ERCP with some duodenal erosion and stone extraction
abdominal exam improved from admission with pain but some bump in LFT's possible inflammation post procedure
cont to trend LFT's will repeat this afternoon
for surgical eval for betty
cont PPI daily for duodenal erosions for 8 weeks on discharge
I updated on status, all questions answered
Assessment / Plan
-
Mr. Kay is a 78 y.o male with past medical history of HTN, HLD, NIDDM, hx of CAD s/p prior CABG, thrombocytopenia, chronic dementia and history of choledocholithiasis complicated by ascending cholangitis with E coli bacteremia and biliary /
gallstone pancreatitis (s/p ERCP 08/2023 w/ sphincterotomy and stent placement, s/p repeat ERCP 10/2023 with stent removal) who presented to the ED with abdominal pain. History is quite limited due to his mental status and chronic dementia. In
speaking with family, he was recommended for a lap betty during his previous hospitalization but surgical intervention was postponed given his prolonged hospitalization with sepsis and deconditioning since that time. Family reports previous
abdominal pain back in November but self-resolved in one day (lasted few hours). No further recurrent abdominal since this current presentation. Now with severe, epigastric abdominal pain with associated nausea/vomiting. Afebrile and HD-stable in ED
with grossly normal labs including LFTs with AST 23, ALT 21, ALP 84 and T Bili 0.7 along with lipase 127. CBC without leukocytosis with WBC 7.7, Hgb 12.0 and [address]
CT Abd/pelvis 07/23/24 w/ IV contrast revealed cholelithiasis and borderline CBD duct dilatation up to 8 mm concerning for filling defects within distal CBD, gallbladder stone, and attenuation of the left PV and unable to rule out PVT along with few
scattered incidental hypoattenuating hepatic lesions (felt 2/2 cysts). Etiology suspicious for recurrent choledocholithiasis given CT findings with possible filling defect and biliary ductal dilatation along with his previous history of stones c/b
cholangitis in the past. However, LFTs remain wnl but may not be fully obstructed given his recent endoscopic sphincterotomy. Unclear if there is a PVT as patient is without any prior chronic liver disease / cirrhosis and would expect elevations in
transaminases if this was an acute PVT (although doubt clinically). Otherwise, no symptoms at this time to suggest biliary sepsis and/or cholangitis.
Abdominal US w/ Dopplers 07/24/2024:
Incomplete exam due to patient intolerance.
1. Patent hepatic vasculature with appropriate directional flow
2. No intra- or extrahepatic biliary ductal dilatation with the visualized portion of the common duct measuring 3.5 mm. No gallstones, gallbladder wall thickening, pericholecystic fluid or sonographic Garcia's sign.
07/25/24 EUS - One stone was visualized endosonographically in the
common bile duct.
- No specimens collected.
07/25/24 - Duodenal erosions.
- The major papilla was on the rim of a diverticulum.
- Prior biliary sphincterotomy appeared open.
- A filling defect was seen on the cholangiogram.
- Choledocholithiasis was found. Complete removal was
accomplished by balloon extraction.
- The biliary tree was swept.
#Epigastric Abdominal Pain
# choledocholithiasis confirmed on EUS s/p ERCP
#increased LFT's
#duodenal erosions
# possible PVT on CT with normal flow on doppler US
#Ascending Cholangitis w/ E Coli Bacteremia (s/p ERCP 08/2023)
#Cholelithiasis
#Hx of CABG
Recommendations:
s/p EUS/ERCP with some duodenal erosion and stone extraction
abdominal exam improved from admission with pain but some bump in LFT's possible inflammation post procedure
cont to trend LFT's will repeat this afternoon
for surgical eval for betty
cont PPI daily for duodenal erosions for 8 weeks on discharge
I updated on status, all questions answered
Subjective
Subjective
Date of Service: July 26, 2024
on clear diet, confused but no pain on exam, tmax 100.7 overnight
Objective
Data Reviewed
Laboratory Data:
Laboratory Results
07/26/24 05:55
07/26/24 05:55
Laboratory Results
PT 16.1 Sec (11.4-14.6) H 07/25/24 05:00
INR 1.31 07/25/24 05:00
Total Bilirubin 4.1 mg/dl (0.2-1.3) H D 07/26/24 05:55
AST 335 U/L (17-59) H 07/26/24 05:55
ALT 302 U/L (0-50) H 07/26/24 05:55
Alkaline Phosphatase 241 U/L (38-126) H 07/26/24 05:55
Lipase 59 U/L (23-300) 07/24/24 06:11
Vital Signs and I&O:
Vital Signs
Temp Pulse Resp BP Pulse Ox
98.4 F 68 14 121/47 98
07/26/24 07:10 07/26/24 07:10 07/26/24 07:10 07/26/24 07:10 07/26/24 07:10
I&O
07/25/24 07/26/24 07/27/24
06:59 06:59 06:59
Intake Total 960 / 960 1250 / 1250
Output Total 100 / 100
Balance 860 / 860 1250 / 1250
Physical Exam
Physical Exam
HEENT: Anicteric and Moist mucous membranes
Cardiology: Normal Sinus Rhythm
Pulmonary: Clear
GI: Soft, Non Distended and Non Tender (slight tensing of abdominal muscles but appears with improved pain from exam on admission )
Extremities: No Edema
Neuro: Other (confused )
[2024-07-26] MEDS: NOVOLOG FLEXPEN-MODERATE RESISTANCE 1 UNITS SC ×3 (09:04→17:25)
[2024-07-26] MEDS: NAMENDA 10 MG PO ×2 (09:05→20:24)
[2024-07-26] MEDS: PROTONIX 40 MG PO ×2 (09:05→20:24)
[2024-07-26] MEDS: TENORMIN 50 MG PO (09:05)
[2024-07-26] MEDS: ASPIR LOW (ENTERIC COATED) 81 MG PO (09:05)
--- NOTE | 2024-07-26 09:19 | W.PN.HOSP.TC ---
Today's Communication/Plan
-
For laparoscopic cholecystectomy today
Assessment / Plan
Assessment / Plan
HPI: 78y M with PMH significant for dementia, hypertension and DM-II who presents to ED complaining of abdominal pain. History obtained from family at the bedside. notes that patient developed RUQ pain today. No N/V. No noted fevers /
chills. He had admission for cholecystitis / choledocholithiasis in 10/2023. He underwent ERCP with sphincterotomy and stent placement at that time.
#Cholelithiasis
#Choledocholithiasis
#Hx of ERCP with sphincterotomy stone remove and stent placement. stent removed on 11/05
Appreciate GI input, status post EUS + ERCP with complete stone removal by balloon extraction 07/25
#Chronic calculus cholecystitis
Appreciate general surgery input, for laparoscopic cholecystectomy today
#Coronary Artery Disease s/p Cardiac Stents in 2004 and subsequent CABG in 2012
-asa continued
#Essential Hypertension
-atenolol continued with hold parameter
Hyperlipidemia
-Resumed statin
Diabetes Mellitus, Type II
-A1C 7.1, Resumed Lantus
-hold NovoLog with meals and Actos
-sliding scale
#Dementia
-Monitor for mood/behavior changes during hospitalization
-memantine and Remeron continued
#HLD
-statin continued
DVT proph: lovenox
Code Status: DNR
Updated at bedside 07/24
Updated son at bedside 07/25
Total time spent to see the patient on the floor, examine the patient, review data and lab results, discuss treatment plan with patient, nursing staff around 40 minutes.
Physical Exam
General: No acute distress
HEENT: Normocephalic, Atraumatic, EOMI, MMM
Respiratory: Clear to Auscultation bilaterally
Cardiac: Normal S1/S2, Regular Rate and Rhythm
GI: Soft, tender at right upper quadrant, Nondistended, Normal Bowel Sounds
Extremities: No Clubbing, Cyanosis, or Edema
Neuro: Pleasantly confused
Psych: Calm, Cooperative
Anticipated Discharge: Within 24 hours
Subjective/Interval History
-
Date of Service: July 26, 2024
Patient denies pain. No fever, no vomiting.
Objective Data
-
Labs:
Laboratory Results
07/26/24 07/26/24
05:55 14:00
WBC 7.0
Hgb 10.8 L
Hct 31.2 L
Plt Count 99 L
Sodium 138
Potassium 3.7
Chloride 106
Carbon Dioxide 20 L
BUN 20
Creatinine 1.3
Glucose 173 H
Calcium 8.8
Total Bilirubin 4.1 H D Pending
AST 335 H Pending
ALT 302 H Pending
Alkaline Phosphatase 241 H Pending
Vital Signs:
Vital Signs
Temp Pulse Resp BP Pulse Ox
98.4 F 68 14 124/47 98
07/26/24 07:10 07/26/24 07:10 07/26/24 07:10 07/26/24 09:05 07/26/24 07:10
I&O
07/25/24 07/26/24 07/27/24
06:59 06:59 06:59
Intake Total 960 / 960 1250 / 1250
Output Total 100 / 100
Balance 860 / 860 1250 / 1250
--- NOTE | 2024-07-26 10:29 | CON.GS ---
Consultation
-
Performing Provider: Tori
Reason for Consultation: Gallstones, choledocholithiasis
Medical History
-
Chief Complaint: Abdominal pain
History of Present Illness:
Patient is a 78-year-old male admitted to the hospitalist service through emergency department evaluation secondary to abdominal pain on 07/23/2024. Found to have cholelithiasis and choledocholithiasis on CT imaging. Underwent ERCP sphincterotomy
stone extraction with GI service 07/25/2024. General surgery is consulted to discuss with patient/his family indications regarding cholecystectomy.
Patient seen and evaluated. Sleeping/resting comfortably in bed. Awakens easily and reports mild abdominal pain but no nausea. History is otherwise limited due to patient's dementia. Discussed with patient's in detail with phone call.
Past Medical History
Past Medical History: Other (Hypertension, hyperlipidemia, diabetes, history of CAD, thrombocytopenia, chronic dementia, previous history of choledocholithiasis with ascending cholangitis/bacteremia and pancreatitis)
Past Surgical History: Other (Appendectomy, CABG, ERCP sphincterotomy stone removal and stent placement, EGD with biliary stent retrieval, repeat ERCP 07/25/2024)
Social History
Tobacco: Non-Smoker
Alcohol: Former
Personal:
Living: With Family
Family History
Family History: Reviewed & Not Pertinent
Allergies / Home Medications
Allergy/AdvReac Type Severity Reaction Status Date / Time
Sulfa (Sulfonamide Allergy Unknown Verified 07/23/24 17:26
Antibiotics)
�Medication �Instructions �Recorded �Confirmed �Type
aspirin 81 mg tablet,delayed 81 mg PO DAILY Blood Clot 08/27/23 07/23/24 History
release Prevention/Tx ##0
atenolol 50 mg tablet 50 mg PO DAILY Blood Pressure ##0 08/27/23 07/23/24 History
cyanocobalamin (vitamin B-12) 1,000 mcg PO HS Supplement ##0 08/27/23 07/23/24 History
1,000 mcg tablet (Vitamin B-12)
rosuvastatin 40 mg tablet 40 mg PO HS High Cholesterol 08/27/23 07/23/24 History
mirtazapine 30 mg tablet 30 mg PO HS Depression #30 tabs 09/04/23 07/23/24 Rx
pioglitazone 30 mg tablet 30 mg PO DAILY Diabetes #30 tabs 09/04/23 07/23/24 Rx
insulin glargine 100 unit/mL (3 7 unit SC QPM Diabetes 11/01/23 07/23/24 History
mL) subcutaneous pen (Lantus
Solostar U-100 Insulin)
insulin aspart U-100 100 unit/mL 5 unit SC AC Diabetes 07/23/24 07/23/24 History
(3 mL) subcutaneous pen (Novolog
FlexPen U-100 Insulin aspart)
memantine 10 mg tablet 10 mg PO BID MENTAL status 07/23/24 07/23/24 History
Review of Systems
-
Unable to obtain full review of systems at this time due to: Dementia
History Source: Patient and Family
All other systems: Negative unless noted
A 10 point review of systems was completed, and was negative except as per HPI.
Physical Exam
Vital Signs
Temp Pulse Resp BP Pulse Ox
98.4 F 68 14 124/47 98
07/26/24 07:10 07/26/24 07:10 07/26/24 07:10 07/26/24 09:05 07/26/24 09:05
Body Mass Index (BMI) 24.1
Lab Results
07/26/24 05:55
07/26/24 05:55
WBC 7.0 10^3/uL (4.8-10.8) 07/26/24 05:55
Hgb 10.8 g/dL (13.0-18.0) L 07/26/24 05:55
Hct 31.2 % (39.0-52.0) L 07/26/24 05:55
Plt Count 99 10^3/uL (130-400) L 07/26/24 05:55
Abs Immat Gran (auto) 0.0 10^3/uL (0-0.05) 07/23/24 18:28
Neutrophils % 87.9 % (42.2-75.2) H 07/23/24 18:28
Physical Exam
General: Well Developed, Well Nourished, No Apparent Distress and Comfortable (Sleeping but easily arousable)
HEENT: Normocephalic
Respiratory: Non Labored Respirations
Cardiac: Regular Rhythm
GI: Soft, Non Distended and Tender (Mild tenderness upper abdomen. No rebound rigidity or guarding.)
Skin: Warm
Neuro: Alert
Psych: Calm and Confused
Assessment / Plan
-
Assessment: 78-year-old male with known history of gallstones and prior choledocholithiasis, cholangitis with bacteremia, pancreatitis admitted with recurrent choledocholithiasis who is post procedure day 1 status post ERCP sphincterotomy and stone
extraction.
Discussed with patient's via phone call indications for cholecystectomy for definitive management of gallstone mediated complications.
Previous imaging reviewed including CTs, MRIs and ERCPs.
Laboratory testing today notable for bump in LFTs but not uncommon after ERCP. Examination without significant tenderness and vital signs are stable.
Laparoscopic cholecystectomy with possible intraoperative cholangiogram was reviewed in detail the patient's including the operative technique, alternative treatment options, benefits and potential risk such as but not limited to bleeding,
infectious or wound related complications, iatrogenic injury to surrounding viscera, bile duct injury, bile leak. We discussed the typical postoperative recovery pending operative findings. Any of the patient's 's concerns or questions were
fully addressed and informed consent was obtained.
Plan: Patient has been tentatively added onto the OR schedule for today 07/26/2024 for laparoscopic cholecystectomy with intraoperative cholangiogram
[2024-07-26 11:56] LABS: Glucose - Point of Care 162 mg/dl (70-99)
--- NOTE | 2024-07-26 12:44 | W.SUR.PREOP ---
Pre-Operative Surgical Note
-
I have examined this patient prior to the performance of the scheduled procedure.
The patient's condition is unchanged from the time of the current History and
Physical and the patient is able to undergo the scheduled procedure.
--- NOTE | 2024-07-26 15:02 | W.IMMPOSTOP ---
Addendum entered and electronically signed by Aric Valle MD 07/26/24 15:18:
#[id number]
Original Note:
Surgical Immed Post Op Note
-
Primary Surgeon: Tori
Assisting Surgeon: Amber PRETTY
Pre-op Diagnosis: Cholelithiasis, choledocholithiasis
Post-op Diagnosis: Chronic calculus cholecystitis with cystic duct obstruction; choledocholithiasis
Procedure Performed: Laparoscopic cholecystectomy
Anesthesia Type: GETA +0.25% Marcaine
Specimen / Cultures: Gallbladder
Estimated Blood Loss: 12 mL
Complications: None immediate
Operative Findings: Chronically inflamed gallbladder encased in omental adhesions with wall thickening. Cysts needle decompression revealing purulent, hydropic bile indicative of chronic cystic duct obstruction. Cystic artery controlled with
hemoclips. Cystic duct identified with wide critical view of safety but short so abandoned attempts at cholangiogram. Cystic duct divided with Endo ZHANG purple staple load. Posterior wall gallbladder essentially fused to liver.
Drains: 19 Nba
Plan: Clear liquids advance diet as tolerated to ADA diet
Zosyn postop due to purulent chronic cholecystitis and would cover with oral antibiotics on discharge for total course of 5 to 7 days postoperatively.
anticipate removal of drain prior to discharge home when tolerating p.o. intake and if nonbilious output
Updated patient's and son in surgical waiting area postoperatively
[2024-07-26 15:17] LABS: Glucose - Point of Care 197 mg/dl (70-99)
[2024-07-26] MEDS: NOVOLOG vial 1 UNITS SC (15:54)
--- NOTE | 2024-07-26 16:28 | PTCARENOTE ---
The patient returned to his room from [facility] post laparoscopic cholecystectomy.The patient is awake and back to his baseline.He denies any pain .All lap sites are dry without drainage.Vital signs are stable. The patient's family is at the bedside.The
patient is in his bed with the call paulson in reach.Medsitter is in place.
[2024-07-26] MEDS: STERILE WATER FOR INJECTION 10 ML IV (17:26)
[2024-07-26] MEDS: ZOSYN 50 IV ×2 (17:29→21:25)
[2024-07-26] MEDS: FLUSH (NSS) 2 FLUSH IV (17:31)
[2024-07-26] MEDS: LOVENOX 40 MG SC (17:31)
[2024-07-26] MEDS: LANTUS 0.07 UNITS SC (17:34)
[2024-07-26] MEDS: TORADOL 15 MG IV (17:34)
--- NOTE | 2024-07-26 21:02 | CM ---
patient is sp lap betty today,clear liquids and advance diet as tolerated,has get drain which will be removed before dc.pt/ot evals pending. Plan:should be able to dc home with no needs vs vn.
[2024-07-26] MEDS: CRESTOR 40 MG PO (21:24)
[2024-07-26] MEDS: REMERON 30 MG PO (21:25)
[2024-07-26 21:27] LABS: Glucose - Point of Care 282 mg/dl (70-99)
[2024-07-27] MEDS: TORADOL 15 MG IV (02:57)
[2024-07-27] MEDS: ZOSYN 50 IV ×4 (02:58→21:58)
[2024-07-27 03:31] VITALS: BP 116/55
[2024-07-27 06:16] LABS: Hematocrit 31.2 % (39.0-52.0); Hemoglobin 10.5 g/dL (13.0-18.0); Mean Corp Hgb Conc. 33.7 g/dL (33.0-37.0); Mean Corpuscular Volume 86.2 fL (80.0-94.0); Mean Platelet Volume 12.4 fL (7.4-10.4); Platelet Count 102 10^3/uL (130-400); Red Blood Cell Count 3.62 10^6/uL (4.70-6.10); Red Cell Dist. Width 13.9 % (11.5-14.5); White Blood Cell Count 5.6 10^3/uL (4.8-10.8)
[2024-07-27 06:44] LABS: ALT (SGPT) 190 U/L (0-50); AST (SGOT) 129 U/L (17-59); Albumin 3.1 g/dl (3.5-5.0); Alkaline Phosphatase 223 U/L (38-126); Blood Urea Nitrogen 22 mg/dl (9-20); Calcium 8.1 mg/dl (8.4-10.2); Carbon Dioxide 22 mmol/L (22-30); Chloride 105 mmol/L (98-107); Estimated Creatinine Clearance 41 ml/min; Glucose 221 mg/dl (70-99); Potassium 3.8 mmol/L (3.5-5.1); Sodium 140 mmol/L (135-145); Total Bilirubin 3.9 mg/dl (0.2-1.3); Total Protein 5.4 g/dl (6.3-8.2); eGFR 47.95
[2024-07-27 07:00] VITALS: BP 86/70
--- NOTE | 2024-07-27 08:30 | W.PN.GS2 ---
Addendum entered and electronically signed by Toby Sprague MD 07/27/24 10:40:
Patient seen and examined.
No major complaints. Encounter limited by patient's mental status.
Gen: NAD
Abd: soft, moderate tenderness, ND, non-peritoneal, incisions c/d/i - no erythema, ecchymosis or drainage, DANIA with serous output
Patient is a 78 yo M p/w choledocholithiasis
PPD#2 s/p ERCP
POD#1 s/p lap betty
Afebrile
Mild hypotension, no tachycardia
T bili and transaminases trending down, direct bili remains elevated
H/H stable, no leukocytosis
ALPA present
--Ok for LFD/ADA diet
--Analgesics as needed
--C/W DANIA with ABD binder to prevent accidental dislodgement given pt confusion. Will likely be able to remove prior to d/c
--Analgesics as needed. D/C NSAID in light of elevated Cr
--Start IVF
--Trend labs
--ABX 5-7 days post op, ok to transition to PO upon discharge but will continue IV Zosyn while inpatient
--Lovenox for VTE ppx
--PPI for BID for GI ppx
Original Note:
Today's Communication / Plan
-
Advance diet
Assessment / Plan
-
78 yo male with a h/o NIDDM, CAD and dementia presenting with chronic cholecystitis and choledocholithiasis now PPD #2 ERCP and POD #1 lap betty
Afebrile
Mild hypotension, no tachycardia
T bili and transaminases trending down, direct bili remains elevated
H/H stable, no leukocytosis
ALPA present
--Ok for LFD/ADA diet
--Analgesics as needed
--C/W DANIA with ABD binder to prevent accidental dislodgement given pt confusion. Will likely be able to remove prior to d/c
--Analgesics as needed. D/C NSAID in light of elevated Cr
--Start IVF
--Trend labs
--c/w ABX 5-7 days post op, ok to transition to PO upon discharge but will continue IV zosyn while inpatient
--Lovenox for VTE ppx
--PPI for BID for GI ppx
Medical management as per primary team
Subjective Data
-
Date of Service: July 27, 2024
Patient seen and examined at bedside with Dr. Sprague. Confused, notes he does not want the binder on but not expressing himself well otherwise. Picking at tubes/dressings.
Objective Data
-
Intake and Output
07/26/24 07/27/24 07/28/24
06:59 06:59 06:59
Intake Total 1250 / 1250 2410 / 2410
Output Total / 78
Balance 1250 / 1250 2332 / 2332
Intake:
Oral fluids 240 / 240 2160 / 2160
IV fluids (Total) 1010 / 1010 150 / 150
Normosol 150 / 150
ns 50 / 50
IV piggybacks 100 / 100
Output:
Drain Output (Total)
Right Middle Abdomen [place]-
[place] A
Other:
Number of approximated SMALL 1
amounts of urine
Number of approximated MODERATE 1
amounts of urine
How many times incontinent 1 6
MODERATE amount urine
How many times incontinent 1 3
SATURATED amount urine
Vital Signs
Temp Pulse Resp BP Pulse Ox
97.7 F 71 18 86/70 96
07/27/24 07:00 07/27/24 07:00 07/27/24 07:00 07/27/24 07:00 07/27/24 07:00
Lab Results
07/27/24 04:45
07/27/24 04:45
Calcium 8.1 mg/dl (8.4-10.2) L 07/27/24 04:45
Total Bilirubin 3.9 mg/dl (0.2-1.3) H 07/27/24 04:45
Direct Bilirubin 3.0 mg/dl (0.0-0.4) H 07/27/24 04:45
AST 129 U/L (17-59) H 07/27/24 04:45
ALT 190 U/L (0-50) H 07/27/24 04:45
Alkaline Phosphatase 223 U/L (38-126) H 07/27/24 04:45
Total Protein 5.4 g/dl (6.3-8.2) L 07/27/24 04:45
Albumin 3.1 g/dl (3.5-5.0) L 07/27/24 04:45
Physical Exam
-
NAD
ABD soft, ND, NT, Incisions with intact glue, no erythema and well approximated. DANIA with blood tinged serous drainage
[2024-07-27 08:49] LABS: Glucose - Point of Care 185 mg/dl (70-99)
--- NOTE | 2024-07-27 08:52 | W.PN.HOSP.TC ---
Today's Communication/Plan
-
see bold
Assessment / Plan
Assessment / Plan
HPI: 78y M with PMH significant for dementia, hypertension and DM-II who presents to ED complaining of abdominal pain. History obtained from family at the bedside. notes that patient developed RUQ pain today. No N/V. No noted fevers /
chills. He had admission for cholecystitis / choledocholithiasis in 10/2023. He underwent ERCP with sphincterotomy and stent placement at that time.
#Cholelithiasis
#Choledocholithiasis
#Hx of ERCP with sphincterotomy stone remove and stent placement. stent removed on 11/05
Appreciate GI input, status post EUS + ERCP with complete stone removal by balloon extraction 07/25
#Chronic calculus cholecystitis
Appreciate general surgery input, s/p laparoscopic cholecystectomy 07/26
Okay for low-fat diet, continue IV Zosyn, can transition to oral antibiotics upon discharge
PPI twice daily
#Acute kidney injury
Discontinue Toradol
IVFs
#Acute blood loss anemia
Due to surgery, monitor hemoglobin
#Coronary Artery Disease s/p Cardiac Stents in 2004 and subsequent CABG in 2012
-asa continued
#Essential Hypertension
-BP soft, hold atenolol
Hyperlipidemia
-Resumed statin
Diabetes Mellitus, Type II
-A1C 7.1, Resumed Lantus, resumed novolog/actos
-sliding scale
#Dementia with behavior disturbance
-memantine and Remeron continued
#HLD
-statin continued
DVT proph: lovenox
Code Status: DNR
Updated at bedside 07/24
Updated son at bedside 07/25
Total time spent to see the patient on the floor, examine the patient, review data and lab results, discuss treatment plan with patient, nursing staff around 50 minutes.
Physical Exam
General: No acute distress
HEENT: Normocephalic, Atraumatic, EOMI, MMM
Respiratory: Clear to Auscultation bilaterally
Cardiac: Normal S1/S2, Regular Rate and Rhythm
GI: Soft, tender at right upper quadrant, Nondistended, Normal Bowel Sounds
Extremities: No Clubbing, Cyanosis, or Edema
Neuro: Pleasantly confused
Psych: Calm, Cooperative
Anticipated Discharge: 24 - 48 hours
Subjective/Interval History
-
Date of Service: July 27, 2024
Patient denies pain. No nausea, no vomiting. No fever.
Objective Data
-
Labs:
Laboratory Results
07/27/24
04:45
WBC 5.6
Hgb 10.5 L
Hct 31.2 L
Plt Count 102 L
Sodium 140
Potassium 3.8
Chloride 105
Carbon Dioxide 22
BUN 22 H
Creatinine 1.5 H
Glucose 221 H
Calcium 8.1 L
Total Bilirubin 3.9 H
AST 129 H
ALT 190 H
Alkaline Phosphatase 223 H
Vital Signs:
Vital Signs
Temp Pulse Resp BP Pulse Ox
97.7 F 71 18 86/70 96
07/27/24 07:00 07/27/24 07:00 07/27/24 07:00 07/27/24 07:00 07/27/24 07:00
I&O
07/26/24 07/27/24 07/28/24
06:59 06:59 06:59
Intake Total 1250 / 1250 2410 / 2410
Output Total 78 / 78
Balance 1250 / 1250 2332 / 2332
--- NOTE | 2024-07-27 09:00 | PN.CDI ---
CDI
- -
CDI:
Physician Documentation Request
Admit Date: 07/23/24 22:55
Dear Doctor Do,
Clinical Indicators:
Patient admitted with Chronic calculus cholecystitis.
Cr/GFR trend:
07/24/24 07/26/24
06:11 05:55
Creatinine 1.0 1.3
eGFR >60.00 56.93
Please clarify which of the following accurately represents the patient's renal status:
ALPA
Rise in creatinine only
Other, please specify
Criteria for ALPA*
1 Increase in serum creatinine by > or = to 0.3 mg/dL (> or = to 26.5 micromol/L) within 48 hours, OR
2 Increase in serum creatinine to > or = to 1.5 times baseline, which is known or presumed to have occurred within 7 days, OR
3 Urine volume < 0.5 nL/kg/hour for six hours
Use of terms such as suspected, likely, concern for, or probable (associated with a specific diagnosis that is being evaluated, monitored, or treated as if it exists) are acceptable and can be coded in the inpatient setting, when documented at the
time of discharge.
Thank you,
Vivien Munoz RN
CDI Specialist
available via tiger text
Please use your independent medical judgment in providing your response.
*Source: Kidney Disease: Improving Global Outcomes (KDIGO) 2012
--- NOTE | 2024-07-27 09:06 | PN.CDI ---
CDI
- -
CDI:
Physician Documentation Request
Admit Date: 07/23/24 22:55
Dear Doctor Do,
Clinical Indicators:
Patient admitted with Chronic calculus cholecystitis.
07/24 (02:58) RN note, 'Pt is uncooperative with some care at this time with personal care and refusing assistance from staff.'
07/25, 07/26 Medsitter in use
07/26 PN 'Dementia-Monitor for mood/behavior changes during hospitalization'
Based on the above, could you clarify in the progress notes, the appropriate diagnosis, if significant, that supports the above abnormalities and additional evaluation, monitoring and/or treatment rendered:
Dementia with behavior disturbance
Dementia without behavior disturbance
Other, please specify
Use of terms such as suspected, likely, concern for, or probable (associated with a specific diagnosis that is being evaluated, monitored, or treated as if it exists) are acceptable and can be coded in the inpatient setting, when documented at the
time of discharge.
Thank you,
Vivien Munoz ENGINE CLEANER
CDI Specialist
available via tiger text
Please use your independent medical judgment in providing your response.
[2024-07-27] MEDS: ASPIR LOW (ENTERIC COATED) 81 MG PO (09:13)
[2024-07-27] MEDS: NOVOLOG FLEXPEN-MODERATE RESISTANCE 1 UNITS SC (09:13)
[2024-07-27] MEDS: PROTONIX 40 MG PO ×2 (09:13→21:18)
[2024-07-27] MEDS: NAMENDA 10 MG PO ×2 (09:13→21:19)
[2024-07-27] MEDS: TENORMIN PO (09:14)
[2024-07-27] MEDS: TYLENOL 1000 MG PO ×2 (09:14→21:19)
[2024-07-27] MEDS: NSS 1000 IV (09:20)
[2024-07-27 11:00] VITALS: BP 106/54
[2024-07-27 11:11] LABS: Glucose - Point of Care 271 mg/dl (70-99)
[2024-07-27] MEDS: NOVOLOG FLEXPEN-MODERATE RESISTANCE 5 UNITS SC ×2 (12:45→17:09)
[2024-07-27 15:00] VITALS: BP 137/63
--- NOTE | 2024-07-27 15:09 | CM ---
Case management following for discharge planning
Chart reviewed
POD#1 s/p lap betty
Labs improving
ALPA
Has DANIA drain
PT/OT recs pend
Plan - anticipate home no needs vs with VN
[2024-07-27 17:07] LABS: Glucose - Point of Care 261 mg/dl (70-99)
[2024-07-27] MEDS: NOVOLOG FLEXPEN 4 UNITS SC (17:09)
[2024-07-27] MEDS: LOVENOX 40 MG SC (17:10)
[2024-07-27] MEDS: LANTUS 0.07 UNITS SC (17:10)
[2024-07-27] MEDS: CRESTOR 40 MG PO (21:18)
[2024-07-27] MEDS: REMERON 30 MG PO (21:18)
[2024-07-27 22:02] LABS: Glucose - Point of Care 271 mg/dl (70-99)
[2024-07-27 23:19] VITALS: BP 127/65
[2024-07-28] MEDS: NSS 1000 IV (00:25)
[2024-07-28] MEDS: ZOSYN 50 IV ×4 (03:18→21:13)
[2024-07-28 06:39] LABS: Hematocrit 32.3 % (39.0-52.0); Hemoglobin 10.9 g/dL (13.0-18.0); Mean Corp Hgb Conc. 33.7 g/dL (33.0-37.0); Mean Corpuscular Hgb 28.2 pg (27.0-31.0); Mean Corpuscular Volume 83.5 fL (80.0-94.0); Mean Platelet Volume 11.6 fL (7.4-10.4); Platelet Count 141 10^3/uL (130-400); Red Blood Cell Count 3.87 10^6/uL (4.70-6.10); Red Cell Dist. Width 14.1 % (11.5-14.5); White Blood Cell Count 5.1 10^3/uL (4.8-10.8)
[2024-07-28 07:00] VITALS: BP 132/55
[2024-07-28 07:01] LABS: ALT (SGPT) 215 U/L (0-50); AST (SGOT) 146 U/L (17-59); Albumin 3.5 g/dl (3.5-5.0); Alkaline Phosphatase 343 U/L (38-126); Blood Urea Nitrogen 16 mg/dl (9-20); Calcium 8.7 mg/dl (8.4-10.2); Carbon Dioxide 22 mmol/L (22-30); Chloride 106 mmol/L (98-107); Direct Bilirubin 2.5 mg/dl (0.0-0.4); Estimated Creatinine Clearance 41 ml/min; Glucose 197 mg/dl (70-99); Potassium 3.7 mmol/L (3.5-5.1); Sodium 144 mmol/L (135-145); Total Bilirubin 3.1 mg/dl (0.2-1.3); eGFR 47.95
[2024-07-28 08:22] LABS: Glucose - Point of Care 213 mg/dl (70-99)
[2024-07-28] MEDS: NAMENDA 10 MG PO ×2 (08:43→19:51)
[2024-07-28] MEDS: ASPIR LOW (ENTERIC COATED) 81 MG PO (08:43)
[2024-07-28] MEDS: NOVOLOG FLEXPEN-MODERATE RESISTANCE 3 UNITS SC (08:43)
[2024-07-28] MEDS: PROTONIX 40 MG PO ×2 (08:43→19:51)
[2024-07-28] MEDS: ACTOS 30 MG PO (08:43)
[2024-07-28] MEDS: NOVOLOG FLEXPEN 4 UNITS SC ×2 (08:44→12:37)
--- NOTE | 2024-07-28 09:15 | W.PN.HOSP.TC ---
Today's Communication/Plan
-
Discharge home tomorrow
Assessment / Plan
Assessment / Plan
HPI: 78y M with PMH significant for dementia, hypertension and DM-II who presents to ED complaining of abdominal pain. History obtained from family at the bedside. notes that patient developed RUQ pain today. No N/V. No noted fevers /
chills. He had admission for cholecystitis / choledocholithiasis in 10/2023. He underwent ERCP with sphincterotomy and stent placement at that time.
#Cholelithiasis
#Choledocholithiasis
#Transaminitis
#Hx of ERCP with sphincterotomy stone remove and stent placement. stent removed on 11/05
Appreciate GI input, status post EUS + ERCP with complete stone removal by balloon extraction 07/25
Trend LFTs
#Chronic calculus cholecystitis
Appreciate general surgery input, s/p laparoscopic cholecystectomy 07/26
Okay for low-fat diet, continue IV Zosyn, can transition to oral antibiotics upon discharge
#Duodenal ulcer/erosion
PPI twice daily
#Acute kidney injury
Discontinue Toradol
IVFs
#Acute blood loss anemia
Due to surgery, monitor hemoglobin
#Coronary Artery Disease s/p Cardiac Stents in 2004 and subsequent CABG in 2012
-asa continued
#Essential Hypertension
-BP soft, hold atenolol
Hyperlipidemia
-Resumed statin
Diabetes Mellitus, Type II
-A1C 7.1, Resumed Lantus, resumed novolog/actos
-sliding scale
#Dementia with behavior disturbance
-memantine and Remeron continued
#HLD
-statin continued
DVT proph: lovenox
Code Status: DNR
Updated at bedside 07/24
Updated son at bedside 07/25
Updated on phone 07/28
Total time spent to see the patient on the floor, examine the patient, review data and lab results, discuss treatment plan with patient, nursing staff around 40 minutes.
Physical Exam
General: No acute distress
HEENT: Normocephalic, Atraumatic, EOMI, MMM
Respiratory: Clear to Auscultation bilaterally
Cardiac: Normal S1/S2, Regular Rate and Rhythm
GI: Soft, tender at right upper quadrant, Nondistended, Normal Bowel Sounds
Extremities: No Clubbing, Cyanosis, or Edema
Neuro: Pleasantly confused
Psych: Calm, Cooperative
Anticipated Discharge: Within 24 hours
Subjective/Interval History
-
Date of Service: July 27, 2024
Patient denies abdominal pain. Denies chest pain, shortness of breath. No fever, no vomiting.
Objective Data
-
Labs:
Laboratory Results
07/27/24
04:45
WBC 5.6
Hgb 10.5 L
Hct 31.2 L
Plt Count 102 L
Sodium 140
Potassium 3.8
Chloride 105
Carbon Dioxide 22
BUN 22 H
Creatinine 1.5 H
Glucose 221 H
Calcium 8.1 L
Total Bilirubin 3.9 H
AST 129 H
ALT 190 H
Alkaline Phosphatase 223 H
Vital Signs:
Vital Signs
Temp Pulse Resp BP Pulse Ox
97.8 F 68 18 106/54 98
07/27/24 11:00 07/27/24 11:00 07/27/24 11:00 07/27/24 11:00 07/27/24 11:00
I&O
07/26/24 07/27/24 07/28/24
06:59 06:59 06:59
Intake Total 1250 / 1250 2410 / 2410
Output Total 78 / 78
Balance 1250 / 1250 2332 / 2332
[2024-07-28] MEDS: 0.45%NACL 1000 IV ×2 (09:29→21:32)
--- NOTE | 2024-07-28 10:23 | W.PN.GS2 ---
Addendum entered and electronically signed by Toby Sprague MD 07/28/24 11:58:
Patient seen and examined. Agree with assessment plan as documented below.
Counter limited by mental status. No complaints. No reports of worsening pain, nausea, or vomiting.
Gen: NAD
Abd: soft, mild tenderness, ND, non-peritoneal, incisions c/d/i - no erythema, ecchymosis or drainage, DANIA serous, no green bile
Patient is a 78 yo M with a h/o NIDDM, CAD and dementia presenting with chronic cholecystitis and choledocholithiasis now PPD #3 ERCP and POD #2 lap betty
AFVSS
LFT's trending down slowly
H/H stable, no leukocytosis
ALPA present
--Continue ADA diet
--Analgesics as needed
--C/W DANIA with abdominal wrap to prevent accidental dislodgement given pt confusion. Will likely be able to remove prior to d/c
--Analgesics as needed, hold NSAIDs given elevated Cr
--IVF as per primary team
--Trend labs
--c/w ABX 5-7 days post op, ok to transition to PO upon discharge but will continue IV zosyn while inpatient
--Lovenox for VTE ppx
--PPI for BID for GI ppx
Original Note:
Today's Communication / Plan
-
Follow labs
C/W DANIA
Assessment / Plan
-
78 yo male with a h/o NIDDM, CAD and dementia presenting with chronic cholecystitis and choledocholithiasis now PPD #3 ERCP and POD #2 lap betty
AFVSS
LFT's trending down slowly
H/H stable, no leukocytosis
ALPA present
--Continue ADA diet
--Analgesics as needed
--C/W DANIA with abdominal wrap to prevent accidental dislodgement given pt confusion. Will likely be able to remove prior to d/c
--Analgesics as needed, hold NSAIDs given elevated Cr
--IVF as per primary team
--Trend labs
--c/w ABX 5-7 days post op, ok to transition to PO upon discharge but will continue IV zosyn while inpatient
--Lovenox for VTE ppx
--PPI for BID for GI ppx
Medical management as per primary team
Subjective Data
-
Date of Service: July 28, 2024
Patient seen and examined at bedside with Dr. Sprague. Denies n/v but confused.
Objective Data
-
Intake and Output
07/27/24 07/28/24 07/29/24
06:59 06:59 06:59
Intake Total 2410 / 2410 2940 / 2940 240 / 240
Output Total
Balance 2332 / 2332 2870 / 2870 240 / 240
Intake:
Oral fluids 2160 / 2160 1080 / 1080 240 / 240
IV fluids (Total) 150 / 150 1660 / 1660
Normosol 150 / 150
IV piggybacks 100 / 100 200 / 200
Output:
Drain Output (Total) 70 /
Right Middle Abdomen [place]- 70
[place] A
Other:
Number of approximated SMALL 1
amounts of urine
How many times incontinent 6
MODERATE amount urine
How many times incontinent 3 3
SATURATED amount urine
Vital Signs
Temp Pulse Resp BP Pulse Ox
98.2 F 59 20 132/55 94
07/28/24 07:00 07/28/24 07:00 07/28/24 07:00 07/28/24 07:00 07/28/24 07:00
Lab Results
07/28/24 06:03
07/28/24 06:03
Calcium 8.7 mg/dl (8.4-10.2) 07/28/24 06:03
Total Bilirubin 3.1 mg/dl (0.2-1.3) H 07/28/24 06:03
Direct Bilirubin 2.5 mg/dl (0.0-0.4) H 07/28/24 06:03
AST 146 U/L (17-59) H 07/28/24 06:03
ALT 215 U/L (0-50) H 07/28/24 06:03
Alkaline Phosphatase 343 U/L (38-126) H 07/28/24 06:03
Total Protein 6.0 g/dl (6.3-8.2) L 07/28/24 06:03
Albumin 3.5 g/dl (3.5-5.0) 07/28/24 06:03
Physical Exam
-
NAD
ABD soft, ND, NT, Incisions with intact glue, no erythema and well approximated. DANIA with serous drainage
[2024-07-28] MEDS: NOVOLOG FLEXPEN-MODERATE RESISTANCE 5 UNITS SC ×2 (12:37→18:06)
[2024-07-28 12:38] LABS: Glucose - Point of Care 267 mg/dl (70-99)
[2024-07-28 15:00] VITALS: BP 137/68
[2024-07-28] MEDS: TYLENOL 1000 MG PO (15:53)
[2024-07-28 16:45] LABS: Glucose - Point of Care 282 mg/dl (70-99)
[2024-07-28] MEDS: LOVENOX 40 MG SC (18:05)
[2024-07-28] MEDS: LANTUS 0.1 UNITS SC (18:05)
[2024-07-28] MEDS: NOVOLOG FLEXPEN 6 UNITS SC (18:07)
[2024-07-28] MEDS: REMERON 30 MG PO (21:13)
[2024-07-28] MEDS: CRESTOR 40 MG PO (21:15)
[2024-07-28 21:36] LABS: Urine Albumin Trace (Neg - Trace); Urine Bilirubin Negative (Negative); Urine Character Clear (Clear); Urine Color Yellow; Urine Glucose 1+ (Negative); Urine Ketone Negative (Negative); Urine Leukocyte Negative (Negative); Urine Nitrite Negative (Negative); Urine Occult Blood Trace (Negative); Urine Specific Gravity 1.005 (<1.030); Urine Urobilinogen Negative (Neg - 1+)
[2024-07-28 21:39] LABS: Glucose - Point of Care 248 mg/dl (70-99)
[2024-07-28 21:47] LABS: Urine Bacteria Moderate (Negative); Urine Red Blood Cell 0-2 /HPF (0-2); Urine White Cell 0-2 /HPF (0-5)
[2024-07-28 23:46] VITALS: BP 141/71
[2024-07-29] MEDS: ZOSYN 50 IV ×4 (03:11→21:41)
[2024-07-29] MEDS: SENOKOT-S 1 TABLET PO (03:35)
[2024-07-29 07:33] LABS: Hematocrit 28.9 % (39.0-52.0); Hemoglobin 10.2 g/dL (13.0-18.0); Mean Corp Hgb Conc. 35.3 g/dL (33.0-37.0); Mean Corpuscular Hgb 29.4 pg (27.0-31.0); Mean Corpuscular Volume 83.3 fL (80.0-94.0); Mean Platelet Volume 11.6 fL (7.4-10.4); Platelet Count 126 10^3/uL (130-400); Red Blood Cell Count 3.47 10^6/uL (4.70-6.10); Red Cell Dist. Width 14.1 % (11.5-14.5); White Blood Cell Count 4.4 10^3/uL (4.8-10.8)
[2024-07-29 07:58] LABS: ALT (SGPT) 170 U/L (0-50); AST (SGOT) 103 U/L (17-59); Albumin 3.1 g/dl (3.5-5.0); Alkaline Phosphatase 362 U/L (38-126); Blood Urea Nitrogen 11 mg/dl (9-20); Calcium 8.4 mg/dl (8.4-10.2); Carbon Dioxide 22 mmol/L (22-30); Chloride 105 mmol/L (98-107); Direct Bilirubin 1.5 mg/dl (0.0-0.4); Estimated Creatinine Clearance 38 ml/min; Glucose 187 mg/dl (70-99); Magnesium 2.2 mg/dl (1.6-2.3); Potassium 3.6 mmol/L (3.5-5.1); Sodium 139 mmol/L (135-145); Total Bilirubin 1.8 mg/dl (0.2-1.3); Total Protein 5.4 g/dl (6.3-8.2); eGFR 44.38
[2024-07-29 08:00] VITALS: BP 136/62
[2024-07-29 08:12] LABS: Glucose - Point of Care 186 mg/dl (70-99)
[2024-07-29] MEDS: NOVOLOG FLEXPEN-MODERATE RESISTANCE 1 UNITS SC ×2 (08:20→17:27)
[2024-07-29] MEDS: NOVOLOG FLEXPEN 6 UNITS SC ×2 (08:21→13:12)
[2024-07-29] MEDS: NAMENDA 10 MG PO ×2 (08:22→19:50)
[2024-07-29] MEDS: PROTONIX 40 MG PO ×2 (08:22→19:50)
[2024-07-29] MEDS: ASPIR LOW (ENTERIC COATED) 81 MG PO (08:22)
[2024-07-29] MEDS: ACTOS 30 MG PO (08:22)
--- NOTE | 2024-07-29 08:41 | W.PN.HOSP.TC ---
Today's Communication/Plan
-
See bold
Assessment / Plan
Assessment / Plan
HPI: 78y M with PMH significant for dementia, hypertension and DM-II who presents to ED complaining of abdominal pain. History obtained from family at the bedside. notes that patient developed RUQ pain today. No N/V. No noted fevers /
chills. He had admission for cholecystitis / choledocholithiasis in 10/2023. He underwent ERCP with sphincterotomy and stent placement at that time.
#Chronic calculus cholecystitis
Appreciate general surgery input, s/p laparoscopic cholecystectomy 07/26
Okay for low-fat diet, continue IV Zosyn, can transition to oral antibiotics upon discharge
DANIA drain removed 07/29
#Cholelithiasis
#Choledocholithiasis
#Transaminitis
#Hx of ERCP with sphincterotomy stone remove and stent placement. stent removed on 11/05
Appreciate GI input, status post EUS + ERCP with complete stone removal by balloon extraction 07/25
LFTs downtrending
#Duodenal ulcer/erosion
PPI twice daily
#Acute kidney injury
Maintain off Toradol
Creatinine 1.6 today, was 1.5 yesterday
Continue IV fluids, trend creatinine
#Low-grade fever
Temp 100.0 on 07/28, not documented
Already on IV Zosyn
UA with moderate bacteria, follow-up on cultures to ensure it is sensitive to Zosyn
#Acute blood loss anemia
Due to surgery, monitor hemoglobin
#Coronary Artery Disease s/p Cardiac Stents in 2004 and subsequent CABG in 2012
-asa continued
#Essential Hypertension
-BP improved, resume atenolol
Hyperlipidemia
-Resumed statin
Diabetes Mellitus, Type II
-A1C 7.1, Resumed Lantus, resumed novolog/actos
-sliding scale
#Dementia with behavior disturbance
-memantine and Remeron continued
#HLD
-statin continued
DVT proph: lovenox
Code Status: DNR
Updated at bedside 07/24
Updated son at bedside 07/25
Updated on phone 07/28
Updated on phone 07/29
Discussed with general surgery and nursing
Total time spent to see the patient on the floor, examine the patient, review data and lab results, discuss treatment plan with patient, nursing staff around 50 minutes.
Physical Exam
General: No acute distress
HEENT: Normocephalic, Atraumatic, EOMI, MMM
Respiratory: Clear to Auscultation bilaterally
Cardiac: Normal S1/S2, Regular Rate and Rhythm
GI: Soft, appropriately tender, incisions clean/dry/intact
Extremities: No Clubbing, Cyanosis, or Edema
Neuro: Pleasantly confused
Psych: Calm, Cooperative
Anticipated Discharge: Within 24 hours
Subjective/Interval History
-
Date of Service: July 29, 2024
Nursing staff reports patient had a low-grade fever yesterday at 100.0. Abdominal pain is tolerable. No vomiting.
Objective Data
-
Labs:
Laboratory Results
07/29/24
05:53
WBC 4.4 L
Hgb 10.2 L
Hct 28.9 L
Plt Count 126 L
Sodium 139
Potassium 3.6
Chloride 105
Carbon Dioxide 22
BUN 11
Creatinine 1.6 H
Glucose 187 H
Calcium 8.4
Total Bilirubin 1.8 H D
AST 103 H
ALT 170 H
Alkaline Phosphatase 362 H
Vital Signs:
Vital Signs
Temp Pulse Resp BP Pulse Ox
98.7 F 75 16 136/62 95
07/29/24 08:00 07/29/24 08:00 07/29/24 08:00 07/29/24 08:00 07/29/24 08:00
I&O
07/28/24 07/29/24 07/30/24
06:59 06:59 06:59
Intake Total 2940 / 2940 2960 / 2960
Output Total 70 / 70 300 / 300
Balance 2870 / 2870 2660 / 2660
[2024-07-29 08:50] VITALS: BP 141/72; PULSE 81
--- NOTE | 2024-07-29 08:56 | W.PN.GS2 ---
Addendum entered and electronically signed by Toby Sprague MD 07/29/24 09:11:
Patient seen and examined. Agree with assessment plan as documented below.
No complaints from patient. No concerns reported from nursing. Encounter limited by patient mental status.
Gen: NAD
Abd: soft, NT/ND, non-peritoneal, incisions c/d/i - no erythema, ecchymosis, or drainage, DANIA serous, nonbilious (removed)
Patient is a 78 yo M with a h/o NIDDM, CAD and dementia presenting with chronic cholecystitis and choledocholithiasis now PPD #4 ERCP and POD #3 lap betty
AFVSS
LFT's and bili improved
H/H stable, no leukocytosis
ALPA present, Cr up to 1.6 this am
--LFD
--Analgesics as needed,hold NSAIDs given elevated Cr
--DANIA removed at bedside
--IVF as per primary team
--Trend labs
--c/w ABX 5-7 days post op, ok to transition to PO upon discharge but will continue IV Zosyn while inpatient
--Lovenox for VTE ppx
--PPI for BID for GI ppx
--Please call with any questions or concerns
Original Note:
Today's Communication / Plan
-
DANIA removed
Assessment / Plan
-
78 yo male with a h/o NIDDM, CAD and dementia presenting with chronic cholecystitis and choledocholithiasis now PPD #3 ERCP and POD #2 lap betty
AFVSS
LFT's improved
H/H stable, no leukocytosis
ALPA present, Cr up to 1.6 this am
--Continue ADA diet
--Analgesics as needed
--DANIA removed at bedside
--Analgesics as needed, hold NSAIDs given elevated Cr
--IVF as per primary team
--Trend labs
--c/w ABX 5-7 days post op, ok to transition to PO upon discharge but will continue IV zosyn while inpatient
--Lovenox for VTE ppx
--PPI for BID for GI ppx
Medical management as per primary team
Subjective Data
-
Date of Service: July 29, 2024
Patient seen and examined at bedside with Dr. Sprague. Denies pain. Remains confused. No nausea.
Objective Data
-
Intake and Output
07/28/24 07/29/24 07/30/24
06:59 06:59 06:59
Intake Total 2940 / 2940 2960 / 2960
Output Total 70 / 70 300 / 300
Balance 2870 / 2870 2660 / 2660
Intake:
Oral fluids 1080 / 1080 840 / 840
IV fluids (Total) 1660 / 1660 1920 / 1920
IV piggybacks 200 / 200 200 / 200
Output:
Drain Output (Total) 70 / 70 50 / 50
Right Middle Abdomen [place]- 70 / 70 50 / 50
[place] A
Urine, Voided 250 / 250
Other:
Number of approximated MODERATE 1
amounts of urine
How many times incontinent 3 2 1
SATURATED amount urine
Vital Signs
Temp Pulse Resp BP Pulse Ox
98.7 F 75 16 136/62 95
07/29/24 08:00 07/29/24 08:00 07/29/24 08:00 07/29/24 08:00 07/29/24 08:00
Lab Results
07/29/24 05:53
07/29/24 05:53
Calcium 8.4 mg/dl (8.4-10.2) 07/29/24 05:53
Magnesium 2.2 mg/dl (1.6-2.3) 07/29/24 05:53
Total Bilirubin 1.8 mg/dl (0.2-1.3) H D 07/29/24 05:53
Direct Bilirubin 1.5 mg/dl (0.0-0.4) H 07/29/24 05:53
AST 103 U/L (17-59) H 07/29/24 05:53
ALT 170 U/L (0-50) H 07/29/24 05:53
Alkaline Phosphatase 362 U/L (38-126) H 07/29/24 05:53
Total Protein 5.4 g/dl (6.3-8.2) L 07/29/24 05:53
Albumin 3.1 g/dl (3.5-5.0) L 07/29/24 05:53
Physical Exam
-
NAD
ABD soft, ND, NT, Incisions with intact glue, no erythema and well approximated. DANIA with serous drainage (removed)
[2024-07-29] MEDS: 0.45%NACL 1000 IV (11:59)
[2024-07-29 13:12] LABS: Glucose - Point of Care 205 mg/dl (70-99)
[2024-07-29] MEDS: NOVOLOG FLEXPEN-MODERATE RESISTANCE 3 UNITS SC (13:13)
[2024-07-29 15:00] VITALS: BP 144/67
[2024-07-29 17:27] LABS: Glucose - Point of Care 175 mg/dl (70-99)
[2024-07-29] MEDS: NOVOLOG FLEXPEN 8 UNITS SC (17:27)
[2024-07-29] MEDS: LANTUS 0.12 UNITS SC (17:28)
[2024-07-29] MEDS: LOVENOX 40 MG SC (17:29)
[2024-07-29 21:31] LABS: Glucose - Point of Care 255 mg/dl (70-99)
[2024-07-29] MEDS: REMERON 30 MG PO (21:40)
[2024-07-29] MEDS: CRESTOR 40 MG PO (21:40)
[2024-07-29] MEDS: MIRALAX 17 GRAMS PO (21:41)
[2024-07-29 22:36] VITALS: BP 136/73
[2024-07-30] MEDS: 0.45%NACL 1000 IV ×2 (00:42→15:00)
[2024-07-30] MEDS: ZOSYN 50 IV ×4 (03:47→21:03)
[2024-07-30 07:27] LABS: ALT (SGPT) 175 U/L (0-50); AST (SGOT) 124 U/L (17-59); Albumin 3.2 g/dl (3.5-5.0); Alkaline Phosphatase 412 U/L (38-126); Blood Urea Nitrogen 11 mg/dl (9-20); Calcium 8.5 mg/dl (8.4-10.2); Carbon Dioxide 22 mmol/L (22-30); Chloride 105 mmol/L (98-107); Estimated Creatinine Clearance 41 ml/min; Glucose 195 mg/dl (70-99); Potassium 3.6 mmol/L (3.5-5.1); Sodium 139 mmol/L (135-145); Total Bilirubin 1.3 mg/dl (0.2-1.3); Total Protein 5.5 g/dl (6.3-8.2); eGFR 47.95
[2024-07-30 07:28] LABS: Glucose - Point of Care 189 mg/dl (70-99)
[2024-07-30 07:44] VITALS: BP 146/83
[2024-07-30] MEDS: NAMENDA 10 MG PO ×2 (08:19→20:50)
[2024-07-30] MEDS: ACTOS 30 MG PO (08:19)
[2024-07-30] MEDS: NOVOLOG FLEXPEN 8 UNITS SC ×3 (08:19→17:31)
[2024-07-30] MEDS: PROTONIX 40 MG PO ×2 (08:19→20:50)
[2024-07-30] MEDS: NOVOLOG FLEXPEN-MODERATE RESISTANCE 1 UNITS SC ×2 (08:19→12:44)
[2024-07-30] MEDS: ASPIR LOW (ENTERIC COATED) 81 MG PO (08:19)
[2024-07-30] MEDS: DULCOLAX 10 MG RECTAL (09:26)
--- NOTE | 2024-07-30 12:13 | W.PN.HOSP.TC ---
Today's Communication/Plan
-
Continue with IV fluids trend daily BMP
Monitor for fevers
Trend LFTs and CBC daily
Assessment / Plan
Assessment / Plan
#Acute kidney injury
-Likely secondary to volume depletion and NSAIDs used for analgesia
-His baseline creatinine is around 1.0, without baseline upon admission
-Had a prerenal in the hospital ALPA with creatinine up to 1.6
-Toradol was held, IVF initiated and creatinine downtrending to 1.5
-Home medications do not include nephrotoxic agents
-Will continue IVF, hold NSAIDs, trend BMP
#Chronic calculus cholecystitis
-Status post laparoscopic cholecystectomy on 07/26/2024, DANIA drain removed 07/29/2024
-Has been tolerating low-fat diet without issue, no postoperative fevers or complication
-Remains on IV Zosyn, will transition to oral Augmentin at DC to complete 7-day course
#Choledocholithiasis
#Elevated LFTs
#Hx of ERCP with sphincterotomy stone removal and stent (removed in 11/05)
-Presented with cholestatic elevation in LFTs; high suspicion for cholelithiasis mediated etiology
-Status post EUS with ERCP and complete stone removal by balloon extraction on 07/25/2024
-LFTs have downtrended generally since stone removal, slight bump in LFTs today compared to yesterday
-Will continue with trending LFTs while here
#Duodenal ulcer/erosion
-Seen on imaging during this hospitalization
-Has had some anemia low blood loss related to surgery and not GI
-No signs of melena, hematochezia or other rectal bleeding symptoms
-Was started on twice daily PPI therapy here
#Low-grade fever
-Temp 100.0 on 07/28, not documented
-Remains on IV Zosyn as above, urine culture without growth
#Acute blood loss anemia
-Due to surgery, hemoglobin seems to have stabilized in the range of 10-11
-No obvious signs or symptoms of active bleeding at this
-Will continue to monitor CBC while here
#Coronary Artery Disease
-s/p Cardiac Stents in 2004 and subsequent CABG in 2012
-Home medications include high intensity statin, aspirin, beta-niya
-No signs of acute coronary ischemia at this time
#Essential Hypertension
-Home medication includes atenolol, no first-line agents
-No known history of hypertensive CVD
-Blood pressure currently adequate
#Hyperlipidemia
-Has known ASCVD with CAD and CABG history
-Remains on high intensity statin
#Diabetes Mellitus, Type II
-A1C 7.1%; no known microvascular disease associated; insulin-dependent
-Home regimen includes Lantus 7 units nightly, aspart 5 units with meals, pioglitazone
-Pioglitazone held, started on insulin sliding scale with Accu-Cheks added to home insulin regimen
#Dementia with behavior disturbance
-memantine and Remeron continued
DVT proph: lovenox
Diet: Carbohydrate controlled
Code Status: DNR
Anticipated Discharge: 24 - 48 hours
Subjective/Interval History
-
Date of Service: July 30, 2024
Seen and examined at bedside. No acute events overnight. AFVSS this morning.
POD #4 from lap betty, POD #5 from ERCP with stone removal
Denies any acute complaints today though limited by his advanced dementia
Objective Data
-
Labs:
Laboratory Results
07/30/24
04:42
Sodium 139
Potassium 3.6
Chloride 105
Carbon Dioxide 22
BUN 11
Creatinine 1.5 H
Glucose 195 H
Calcium 8.5
Total Bilirubin 1.3
AST 124 H
ALT 175 H
Alkaline Phosphatase 412 H
Vital Signs:
Vital Signs
Temp Pulse Resp BP Pulse Ox
98.4 F 75 16 146/83 95
07/30/24 07:44 07/30/24 07:44 07/30/24 07:44 07/30/24 07:44 07/30/24 07:44
I&O
07/29/24 07/30/24 07/31/24
06:59 06:59 06:59
Intake Total 2960 / 2960 1350 / 1350
Output Total 300 / 300
Balance 2660 / 2660 1350 / 1350
Review of Systems
-
Unable to obtain full review of systems at this time due to: Dementia
Physical Exam
-
General: Well Nourished, No Apparent Distress and Comfortable
HEENT: Normocephalic, Atraumatic, Moist Mucous Membranes and Anicteric
Respiratory: Clear to Auscultation and Non Labored Respirations; Negative Wheezes, Rales, Rhonchi or Accessory Resp Muscle Use
Cardiac: Regular Rhythm and S1/S2; Negative Murmur, Rub, JVD or Gallop
GI: Soft, Nontender, Nondistended and Normal Bowel Sounds
Genito-urinary: No Costovertebral Tender
Musculoskeletal: No Clubbing, No Cyanosis and No Edema
Skin: Warm, Dry and Normal Turgor; Negative Rash or Jaundice
Neuro: Awake, Alert, Oriented, Nonfocal/Grossly Intact and Central Nerve's Intact; Negative Tremors
Psych: Calm
Data Reviewed
-
Labs: Labs Reviewed by me
[2024-07-30 12:15] VITALS: BP 128/81; PULSE 72
[2024-07-30 12:43] LABS: Glucose - Point of Care 195 mg/dl (70-99)
--- NOTE | 2024-07-30 14:08 | CM ---
Case management following for discharge planning
Chart reviewed
Resolving ALPA - remains on IVF's
Monitoring labs
PT - no needs
CM cont to follow for d/c needs
Plan - anticipate home no needs
[2024-07-30 15:07] VITALS: BP 118/73
[2024-07-30 17:30] LABS: Glucose - Point of Care 235 mg/dl (70-99)
[2024-07-30] MEDS: LOVENOX 40 MG SC (17:30)
[2024-07-30] MEDS: NOVOLOG FLEXPEN-MODERATE RESISTANCE 2 UNITS SC (17:30)
[2024-07-30] MEDS: LANTUS 0.12 UNITS SC (17:32)
[2024-07-30] MEDS: REMERON 30 MG PO (21:02)
[2024-07-30] MEDS: CRESTOR 40 MG PO (21:02)
[2024-07-30 21:46] LABS: Glucose - Point of Care 240 mg/dl (70-99)
[2024-07-30 23:35] VITALS: BP 126/64
[2024-07-31] MEDS: 0.45%NACL 1000 IV (00:38)
[2024-07-31] MEDS: ZOSYN 50 IV ×2 (03:07→10:12)
[2024-07-31 07:17] LABS: % Basophils 0.7 % (0-2); % Eosinophils 2.8 % (0-6); % Lymphocytes 15.7 % (20.5-51.1); % Monocytes 15.3 % (1.7-9.3); % Neutrophils 62.5 % (42.2-75.2); Absolute Eosinophils 0.2 10^3/uL (0-0.7); Absolute Immature Granulocytes 0.2 10^3/uL (0-0.05); Absolute Lymphocytes 0.9 10^3/uL (1.2-3.4); Absolute Monocytes 0.8 10^3/uL (0.1-0.6); Absolute Neutrophils 3.4 10^3/uL (1.4-6.5); Hematocrit 29.8 % (39.0-52.0); Mean Corp Hgb Conc. 33.6 g/dL (33.0-37.0); Mean Corpuscular Hgb 27.3 pg (27.0-31.0); Mean Corpuscular Volume 81.4 fL (80.0-94.0); Nucleated Red Blood Cells % 0 % (-); Red Blood Cell Count 3.66 10^6/uL (4.70-6.10); Red Cell Dist. Width 14.7 % (11.5-14.5); White Blood Cell Count 5.4 10^3/uL (4.8-10.8)
[2024-07-31 07:38] LABS: Glucose - Point of Care 227 mg/dl (70-99)
[2024-07-31 07:41] VITALS: BP 142/76
[2024-07-31 08:25] LABS: Blood Urea Nitrogen 10 mg/dl (9-20); Calcium 8.9 mg/dl (8.4-10.2); Carbon Dioxide 21 mmol/L (22-30); Chloride 105 mmol/L (98-107); Estimated Creatinine Clearance 41 ml/min; Glucose 212 mg/dl (70-99); Potassium 3.7 mmol/L (3.5-5.1); Sodium 140 mmol/L (135-145); eGFR 47.95
[2024-07-31] MEDS: ACTOS 30 MG PO (09:02)
[2024-07-31] MEDS: ASPIR LOW (ENTERIC COATED) 81 MG PO (09:02)
[2024-07-31] MEDS: PROTONIX 40 MG PO (09:02)
[2024-07-31] MEDS: NAMENDA 10 MG PO (09:02)
[2024-07-31] MEDS: NOVOLOG FLEXPEN 8 UNITS SC ×2 (09:03→13:30)
[2024-07-31] MEDS: NOVOLOG FLEXPEN-MODERATE RESISTANCE 3 UNITS SC ×2 (09:03→13:29)
[2024-07-31] MEDS: LR 1000 IV (10:12)
--- NOTE | 2024-07-31 10:41 | W.PN.HOSP.TC ---
Addendum entered and electronically signed by Lazaro Hayes DO 07/31/24 14:16:
CDI:. On 07/29 labs showed pancytopenia. High suspicion for multifactorial process in context of his recent infection and surgery. White cell count and platelets normalized. Likely reactive. Hemoglobin stable in the context of his chronic
Original Note:
Today's Communication/Plan
-
Switched IVF to LR
Repeat BMP in afternoon
Potential discharge
Assessment / Plan
Assessment / Plan
#Acute kidney injury
-Likely secondary to volume depletion and NSAIDs used for analgesia
-His baseline creatinine is around 1.0, without baseline upon admission
-Had a prerenal in the hospital ALPA with creatinine up to 1.6
-Toradol was held, IVF initiated and creatinine downtrending to 1.5
-Home medications do not include nephrotoxic agents
-Transitioned to LR for IVF, continue to hold NSAIDs
-Repeat BMP in afternoon, daily thereafter
#Chronic calculus cholecystitis
-Status post laparoscopic cholecystectomy on 07/26/2024, DANIA drain removed 07/29/2024
-Has been tolerating low-fat diet without issue, no postoperative fevers or complication
-Remains on IV Zosyn, will transition to oral Augmentin at DC to complete 7-day course
#Choledocholithiasis
#Elevated LFTs
#Hx of ERCP with sphincterotomy stone removal and stent (removed in 11/05)
-Presented with cholestatic elevation in LFTs; high suspicion for cholelithiasis mediated etiology
-Status post EUS with ERCP and complete stone removal by balloon extraction on 07/25/2024
-LFTs have downtrended generally since stone removal, slight bump in LFTs today compared to yesterday
-Will continue with trending LFTs while here
#Duodenal ulcer/erosion
-Seen on imaging during this hospitalization
-Has had some anemia low blood loss related to surgery and not GI
-No signs of melena, hematochezia or other rectal bleeding symptoms
-Was started on twice daily PPI therapy here
#Low-grade fever
-Temp 100.0 on 07/28, not documented
-Remains on IV Zosyn as above, urine culture without growth
#Acute blood loss anemia
-Due to surgery, hemoglobin seems to have stabilized in the range of 10-11
-No obvious signs or symptoms of active bleeding at this
-Will continue to monitor CBC while here
#Coronary Artery Disease
-s/p Cardiac Stents in 2004 and subsequent CABG in 2012
-Home medications include high intensity statin, aspirin, beta-niya
-No signs of acute coronary ischemia at this time
#Essential Hypertension
-Home medication includes atenolol, no first-line agents
-No known history of hypertensive CVD
-Blood pressure currently adequate
#Hyperlipidemia
-Has known ASCVD with CAD and CABG history
-Remains on high intensity statin
#Diabetes Mellitus, Type II
-A1C 7.1%; no known microvascular disease associated; insulin-dependent
-Home regimen includes Lantus 7 units nightly, aspart 5 units with meals, pioglitazone
-Pioglitazone held, started on insulin sliding scale with Accu-Cheks added to home insulin regimen
#Dementia with behavior disturbance
-memantine and Remeron continued
DVT proph: lovenox
Diet: Carbohydrate controlled
Code Status: DNR
Anticipated Discharge: Within 24 hours
Subjective/Interval History
-
Date of Service: July 31, 2024
Seen and examined at the bedside. No acute events overnight. AFVSS this morning
Renal function stable, not improving as expected. I switched his IVF from hypotonic to isotonic today. Will repeat BMP in afternoon
He otherwise denies acute complaints, history limited from his advanced
Objective Data
-
Labs:
Laboratory Results
07/31/24
06:59
WBC 5.4
Hgb 10.0 L
Hct 29.8 L
Plt Count
Sodium 140
Potassium 3.7
Chloride 105
Carbon Dioxide 21 L
BUN 10
Creatinine 1.5 H
Glucose 212 H
Calcium 8.9
Vital Signs:
Vital Signs
Temp Pulse Resp BP Pulse Ox
98.2 F 78 18 142/76 95
07/31/24 07:41 07/31/24 07:41 07/31/24 07:41 07/31/24 07:41 07/31/24 07:41
I&O
07/30/24 07/31/24 08/01/24
06:59 06:59 06:59
Intake Total 1350 / 1350 2280 / 2280
Output Total 475 / 475
Balance 1350 / 1350 1805 / 1805
Review of Systems
-
Unable to obtain full review of systems at this time due to: Dementia
Physical Exam
-
General: Well Nourished, No Apparent Distress and Comfortable
HEENT: Normocephalic, Atraumatic and Moist Mucous Membranes
Respiratory: Clear to Auscultation and Non Labored Respirations
Cardiac: Regular Rhythm, S1/S2 and Murmur (2/6 crescendo decrescendo); Negative Rub, JVD or Gallop
GI: Soft, Nontender, Nondistended and Normal Bowel Sounds
Musculoskeletal: No Clubbing, No Cyanosis, No Edema and Other (No gross deformity)
Skin: Warm and Dry; Negative Rash or Jaundice
Neuro: Awake, Alert, Oriented (To self), Nonfocal/Grossly Intact and Central Nerve's Intact; Negative Tremors
Psych: Calm
Data Reviewed
-
Labs: Labs Reviewed by me, Discussed with Patient and Discussed with Family
[2024-07-31 11:48] LABS: Glucose - Point of Care 218 mg/dl (70-99)
[2024-07-31 13:49] LABS: Blood Urea Nitrogen 10 mg/dl (9-20); Calcium 9.1 mg/dl (8.4-10.2); Carbon Dioxide 24 mmol/L (22-30); Chloride 105 mmol/L (98-107); Estimated Creatinine Clearance 41 ml/min; Glucose 200 mg/dl (70-99); Potassium 3.7 mmol/L (3.5-5.1); Sodium 142 mmol/L (135-145); eGFR 47.95
--- NOTE | 2024-07-31 14:05 | PN.CDI ---
CDI
- -
CDI:
Physician Documentation Request
Admit Date: 07/23/24 22:55
Dear Doctor Freddy,
Clinical Indicators:
Patient admitted with chronic calculus cholecystitis; s/p laparoscopic cholecystectomy on 07/26/2024.
PMH includes thrombocytopenia
WBC, RBC, Plt count:
07/29/24
05:53
WBC 4.4 L
RBC 3.47 L
Plt Count 126 L
Based on the above, could you clarify in the progress notes, the appropriate diagnosis, if significant, that supports the above abnormalities and additional evaluation, monitoring and/or treatment rendered:
Pancytopenia
Thrombocytopenia only
Other, please specify
Use of terms such as suspected, likely, concern for, or probable (associated with a specific diagnosis that is being evaluated, monitored, or treated as if it exists) are acceptable and can be coded in the inpatient setting, when documented at the
time of discharge.
Thank you,
Vivien Munoz RN BSN
CDI Specialist
available via tiger text
Please use your independent medical judgment in providing your response.
--- NOTE | 2024-07-31 14:06 | W.DCSUMMARY ---
Discharge Summary
Discharge Data
Date of Admission: 07/23/24
Date of Discharge: 07/31/24
-
Pending Results: No
Hospital Course
78-year-old male with Alzheimer's dementia, HTN, HLD, type II DM, history of gallstone pancreatitis s/p ERCP with sphincterotomy that presented to the hospital with left upper abdominal pain. Associated with nausea. Preliminary CT scan in the ED
showed signs of choledocholithiasis with CBD dilation. MRCP consistent with choledocholithiasis. EUS with ERCP was performed with stone visualized endosonographically in the CBD, complete removal of the stone was performed with balloon extraction
and biliary tree sweeping. LFTs down trended following stone removal. He had laparoscopic cholecystectomy the following day due to recurrent gallstone disease. He was discharged on oral Augmentin course to complete 10 days of antibiotics
During his EUS and ERCP there was duodenal erosions noted. He was started on twice daily oral PPI therapy.
He had acute kidney injury while in the hospital, creatinine increase from 1.0-1.5. Suspect etiology related to NSAIDs, possible AIN versus ATN. Creatinine stayed stable at 1.5 for multiple days. On 07/30 and 07/31 he was reported to have
significant urine output. Renal function remained stable. Suspect renal function recovering due to polyuria. Provided a prescription for BMP 1 week after discharge to reassess renal function.. Results to be sent to PCP
Lastly his insulin regimen was altered for hyperglycemia while in the hospital. Lantus insulin was increased to 12 units nightly, mealtime insulin increased up to 8 units with meals.
Should follow-up with primary care doctor and surgeon following discharge from the hospital
Discharge Plan
-
Patient Disposition: Home (Routine Discharge)
Discharge Diagnosis/Procedures: Chronic calculus cholecystitis. Laparoscopic cholecystectomy. Choledocholithiasis. ERCP sphincterotomy and stone extraction. ALPA.
Condition: Fair
Diet: As tolerated and Diabetic, Carb Controlled
Additional Diets: Smaller meals for first few days postoperatively as abdominal bloating and distention are common.
Activity: No strenuous activity
Additional Activity: No lifting over 15 to 20 pounds. Walking, standing, stairs and routine daily light activities are all okay as tolerated
Driving Restrictions: No driving
Bathing Restrictions: OK to Shower
Blood Work: BMP in 7 days to recheck kidney function, have results sent to primary care doctor
Others Tests: None
Wound Care: Glue at surgical sites typically peels off in 2 to 3 weeks. Cover where your drain site was with a dry gauze dressing until drainage no longer noted.
Activity Restrictions/Additional Instructions:
No heavy lifting until you see primary care/family doctor or surgeon
Schedule follow-up appointment with your primary care doctor within 7 to 10 days of discharge from the hospital for routine follow
Instructions: Gallstones, Cholecystectomy, Laparoscopic Surgery
Referrals:
Aric Valle MD [Active] - in two to three weeks
Aram Mojica DO [Family Provider] -
Additional Discharge Medication Instructions: Take Augmentin 875-125 mg tablet twice daily for 4 more days after discharge
Start Pantoprazole 40 mg twice daily
Increased insulin aspart 8 units with meals
Increased insulin glargine to 12 units nightly
Stop taking vitamin B12 until you see your primary care doctor
Prescriptions:
New
insulin glargine [Lantus Solostar U-100 Insulin] 100 unit/mL (3 mL) insulin pen
12 unit SC QPM 30 Days Qty: 3.6 0RF
insulin aspart U-100 100 unit/mL (3 mL) Insulin Pen
8 unit SC AC 30 Days Qty: 7.2 0RF
pantoprazole 40 mg Tablet,Delayed Release (Dr/Ec)
40 mg PO BID 30 Days Qty: 60 0RF
amoxicillin-pot clavulanate 875-125 mg tablet
1 tab PO BID 4 Days Qty: 8 0RF
Continued
aspirin 81 mg Tablet,Delayed Release (Dr/Ec)
81 mg PO DAILY Qty: 0
atenolol 50 mg Tablet
50 mg PO DAILY Qty: 0
rosuvastatin 40 mg Tablet
40 mg PO HS
mirtazapine 30 mg Tablet
30 mg PO HS Qty: 30 0RF
pioglitazone 30 mg Tablet
30 mg PO DAILY Qty: 30 0RF
memantine 10 mg Tablet
10 mg PO BID
Discontinued
cyanocobalamin (vitamin B-12) [Vitamin B-12] 1,000 mcg Tablet
1,000 mcg PO HS Qty: 0
insulin glargine [Lantus Solostar U-100 Insulin] 100 unit/mL (3 mL) Insulin Pen
7 unit SC QPM
insulin aspart U-100 [Novolog FlexPen U-100 Insulin] 100 unit/mL (3 mL) Insulin Pen
5 unit SC AC
Discharge Orders:
Discharge Patient (As Directed); Ordered 07/31/24
Ordered By: Lazaro Hayes
Discharge Date and Time
Print Language: MALAY
--- NOTE | 2024-07-31 14:17 | CM ---
CM reviewed chart and noted dc order
Bedside meeting with pt and spouse
No dc needs noted
IMM verbally completed and copy provided
Discharge Disposition- home, no needs- spouse transport
[2024-07-31 15:16] VITALS: BP 115/74
== END 2024-07-31 16:00 | disposition home or self-care (01) | DRG 417 ==
LOC: 2 SOUTH 22:55
PROVIDERS: Family Medicine; Internal Medicine; Internal Medicine Gastroenterology; Nurse Practitioner Adult Health; Registered Nurse; ADMITTING PHYSICIAN Hospitalist; ATTENDING PHYSICIAN Internal Medicine; EMERGENCY PHYSICIAN Student in an Organized Health Care Education/Training Program; FAMILY PHYSICIAN Family Medicine; OTHER PHYSICIAN Student in an Organized Health Care Education/Training Program; OTHER PHYSICIAN Surgery
PROC: 0DJ08ZZ Inspection of Upper Intestinal Tract, Via Natural or Artificial Opening Endoscopic (ICD-10-PCS; 2024-07-25)
PROC: 0FC98ZZ Extirpation of Matter from Common Bile Duct, Via Natural or Artificial Opening Endoscopic (ICD-10-PCS; 2024-07-25)
PROC: BF101ZZ Fluoroscopy of Bile Ducts using Low Osmolar Contrast (ICD-10-PCS; 2024-07-25)
PROC: 0FT44ZZ Resection of Gallbladder, Percutaneous Endoscopic Approach (ICD-10-PCS; 2024-07-26)
DX: K80.65 Calculus of gallbladder and bile duct with chronic cholecystitis with obstruction (principal); N17.0 Acute kidney failure with tubular necrosis; D61.818 Other pancytopenia; D62 Acute posthemorrhagic anemia; F02.C18 Dementia in other diseases classified elsewhere, severe, with other behavioral disturbance; G30.9 Alzheimer's disease, unspecified; I10 Essential (primary) hypertension; K66.0 Peritoneal adhesions (postprocedural) (postinfection); E11.65 Type 2 diabetes mellitus with hyperglycemia; F32.A Depression, unspecified; E78.00 Pure hypercholesterolemia, unspecified; I25.10 Atherosclerotic heart disease of native coronary artery without angina pectoris; R74.01 Elevation of levels of liver transaminase levels; D63.8 Anemia in other chronic diseases classified elsewhere; R50.9 Fever, unspecified; D69.6 Thrombocytopenia, unspecified; I95.81 Postprocedural hypotension; K26.9 Duodenal ulcer, unspecified as acute or chronic, without hemorrhage or perforation; R74.8 Abnormal levels of other serum enzymes; Z66 Do not resuscitate; Z79.82 Long term (current) use of aspirin; Z79.4 Long term (current) use of insulin; Z95.5 Presence of coronary angioplasty implant and graft; Z95.1 Presence of aortocoronary bypass graft; Z88.2 Allergy status to sulfonamides
CPT/HCPCS: 88304; 74177; 74330; 76000; 76700; 80048; 80053; 80076; 81003; 81015; 82248; 82962; 83036; 83690; 83735; 85025; 85027; 85610; 87086; 93005; 93975; 96361; 96374; 96375; 97162; 97530; 99285; C1769; Q9967

== ENCOUNTER 2025-01-03 22:04 | Inpatient (IN) | payer OTHER, SELFPAY ==
[2025-01-03] VITALS (7 sets, daily range): BP systolic 107–133; BP diastolic 56–95; PULSE 90–92; BMI 20.4; BMI 24.3
[2025-01-03] MEDS: TYLENOL 1000 MG PO (17:06)
[2025-01-03 17:10] LABS: Lactic Acid 1.3 mmol/L (0.7-2.0)
[2025-01-03] MEDS: NSS 1000 IV (17:11)
[2025-01-03 17:13] LABS: Urine Albumin 3+ (Neg - Trace); Urine Bilirubin Negative (Negative); Urine Character Clear (Clear); Urine Color Yellow; Urine Glucose Negative (Negative); Urine Ketone Negative (Negative); Urine Leukocyte Negative (Negative); Urine Nitrite Negative (Negative); Urine Occult Blood 4+ (Negative); Urine Specific Gravity 1.015 (<1.030); Urine Urobilinogen Negative (Neg - 1+)
[2025-01-03 17:15] LABS: % Basophils 0.4 % (0-2); % Immature Granulocytes 0.4 % (0-0.5); % Monocytes 8.7 % (1.7-9.3); % Neutrophils 87.5 % (42.2-75.2); Absolute Lymphocytes 0.3 10^3/uL (1.2-3.4); Absolute Monocytes 0.7 10^3/uL (0.1-0.6); Absolute Neutrophils 7.4 10^3/uL (1.4-6.5); Hematocrit 33.7 % (39.0-52.0); Hemoglobin 11.4 g/dL (13.0-18.0); Mean Corp Hgb Conc. 33.8 g/dL (33.0-37.0); Mean Corpuscular Hgb 28.1 pg (27.0-31.0); Mean Corpuscular Volume 83.2 fL (80.0-94.0); Mean Platelet Volume 11.2 fL (7.4-10.4); Nucleated Red Blood Cells % 0 % (-); Platelet Count 128 10^3/uL (130-400); Red Blood Cell Count 4.05 10^6/uL (4.70-6.10); Red Cell Dist. Width 14.1 % (11.5-14.5); White Blood Cell Count 8.4 10^3/uL (4.8-10.8)
--- NOTE | 2025-01-03 17:16 | ED.GENMED ---
History of Present Illness
General
Chief Complaint: Change in Mental Status
Time Seen by Provider: 01/03/25 16:37
History of Present Illness
History of Present Illness:
79-year-old male with history of dementia, hypertension, hyperlipidemia presenting to the emergency department for change in mental status. Patient arrives with who notes that since last night patient has had a fever. Today he had some
mumbled speech and was pacing around the house, which she notes he sometimes does when he comes down with an infection. She notes that she recently had an upper respiratory infection. Patient does have a mild cough. He has not had any Tylenol or
Motrin today, did have Motrin last evening. Patient himself denies any acute complaints, however is a very limited historian secondary to his dementia. No additional history obtained at this time
Past History
Past History
ED Past Medical History: CAD, HTN, Hypercholesterolemia, NIDDM and Other (Dementia)
ED Past Surgical History: Appendectomy, Cardiac and Other (Hernia repair)
Phy Exam
Physical Exam
Physical Exam:
General: Well-appearing, no clinical signs of dehydration, nontoxic and in no acute distress
HEENT: protecting airway
Neck: appears supple
CV: Tachycardic, regular rhythm
Resp: No accessory muscle use, no increased work of breathing, lungs clear to auscultation bilaterally
Abd: Soft and non-distended, no tenderness to palpation
Extremities: No deformities, no swelling, no erythema
Neuro: alert, no focal neurologic deficit
: deferred
Rectal: deferred
Psych: Normal affect
Skin: Intact
Course
Orders/Labs/Results
Orders:
Orders
01/03/25 16:18
EKG [Electrocardiogram (*1)] Urgent
Reason for Study: Tachycardia
01/03/25 16:24
EKG- Treatment ONCE
01/03/25 16:41
Complete Blood Count/With Diff Urgent
Comprehensive Metabolic Panel Urgent
Urinalysis Reflex To Culture Urgent
Date Specimen was Collected: 01/03/25
Time Specimen was Collected: 16:18
Urine Microscopic Reflex Cult Urgent
Blood Culture Urgent
[facility] Source: Blood/Venous
Specimen Description:
Blood Culture Urgent
[facility] Source: Blood/Venous
Specimen Description:
01/03/25 16:42
Lactic Acid Urgent
01/03/25 16:52
COVID-19 Antigen Urgent
Source: Nasal Swab
Influenza A+B Rapid Molecular Urgent
[facility] Source: Nasal Swab
Specimen Description:
0.9% Sodium Chloride 1000 ml [Nss] 1,000 ml IV BOLUS
Acetaminophen [Tylenol] 1,000 mg PO NOW STA
CR Chest - 2 Views Urgent
Comment:
Reason For Exam: fever, cough, sepsis
Abnormal Lab Results
01/03/25
16:41
RBC 4.05 L 10^6/uL
(4.70-6.10)
Hgb 11.4 L g/dL
(13.0-18.0)
Hct 33.7 L %
(39.0-52.0)
Plt Count 128 L 10^3/uL
(130-400)
MPV 11.2 H fL
(7.4-10.4)
Absolute Neuts (auto) 7.4 H 10^3/uL
(1.4-6.5)
Absolute Lymphs (auto) 0.3 L 10^3/uL
(1.2-3.4)
Absolute Monos (auto) 0.7 H 10^3/uL
(0.1-0.6)
Neutrophils % 87.5 H %
(42.2-75.2)
Lymphocytes % 3.0 L %
(20.5-51.1)
Glucose 134 H mg/dl
(70-99)
Ur Occult Blood Reflex 4+ A
(Negative)
Urine Bacteria (Reflex) Few A
(Negative)
Urine Albumin (Reflex) 3+ A
(Neg - Trace)
01/03/25 16:41
01/03/25 16:41
Vital Signs
Initial and Last Documented VS:
Initial Vital Signs
Temp Pulse Resp BP Pulse Ox
101 F H 121 17 129/80 99
01/03/25 16:25 01/03/25 16:25 01/03/25 16:25 01/03/25 16:25 01/03/25 16:25
Last Documented Vital Signs
Temp Pulse Resp BP Pulse Ox
101 F H 117 17 133/95 97
01/03/25 16:25 01/03/25 17:45 01/03/25 17:45 01/03/25 17:00 01/03/25 16:27
MDM/Problems Addressed
MDM/Problems Addressed:
79-year-old male with history of dementia, hypertension, hyperlipidemia presenting for change in mental status and fever. Vital signs on arrival are significant for fever and tachycardia.
On exam, patient is resting comfortably, no acute distress. Vital signs are concerning for underlying infection. Patient is meeting criteria for SIRS, initiating septic workup with laboratory analysis including lactic acid and blood cultures.
Will start patient IV fluids. Potential source of infection include pulmonary versus urinary. No tenderness to the abdomen. Plan for chest x-ray imaging and urinalysis. Tylenol administered for fever
18:00 -lactic acid within normal limits and blood pressure remains stable. Without present concern for severe sepsis or septic shock. Patient's flu test came back positive, suspected etiology of symptoms. Plan for admission for continued
respiratory monitoring, fall risk with change in behavior. Pending chest x-ray imaging
*Critical Care Note
Total Time (30-74mins, 75-104mins- exclusive of procedures): Not Applicable
ED Attending Note
-
Portions of this chart may have been created with voice recognition software.� Occasional wrong word or��sound alike� substitutions may have occurred due to the inherent limitations of voice recognition software.
Discharge Plan
Departure
Prescriptions:
No Action
aspirin 81 mg Tablet,Delayed Release (Dr/Ec)
81 mg PO DAILY Qty: 0
atenolol 50 mg Tablet
50 mg PO DAILY Qty: 0
rosuvastatin 40 mg Tablet
40 mg PO HS
mirtazapine 30 mg Tablet
30 mg PO HS Qty: 30 0RF
pioglitazone 30 mg Tablet
30 mg PO DAILY Qty: 30 0RF
memantine 10 mg Tablet
10 mg PO BID
insulin glargine [Lantus Solostar U-100 Insulin] 100 unit/mL (3 mL) insulin pen
12 unit SC QPM 30 Days Qty: 3.6 0RF
insulin aspart U-100 100 unit/mL (3 mL) Insulin Pen
8 unit SC AC 30 Days Qty: 7.2 0RF
pantoprazole 40 mg Tablet,Delayed Release (Dr/Ec)
40 mg PO BID 30 Days Qty: 60 0RF
amoxicillin-pot clavulanate 875-125 mg tablet
1 tab PO BID 4 Days Qty: 8 0RF
Referrals:
NONE,* [Active] -
Interventions
Interventions:
*Risk Screen - Suicide Last Done: 01/03/25 16:14
*General Assessment Last Done: 01/03/25 16:14
*Neglect/Abuse Screening Last Done: 01/03/25 16:14
ED- Fall Risk Assessment Last Done: 01/03/25 16:14
*ED COVID-19 Vaccine History Last Done: 01/03/25 16:14
ED- Neurological Assessment Last Done: 01/03/25 16:14
ED- Cardiac Assessment Last Done: 01/03/25 16:28
ED Swallowing Screen Last Done: 01/03/25 17:12
Discharge Date and Time
Print Language: SAMMARINESE
[2025-01-03 17:28] LABS: COVID-19 Antigen Negative (Negative)
[2025-01-03 17:30] LABS: ALT (SGPT) 24 U/L (0-50); AST (SGOT) 31 U/L (17-59); Albumin 4.7 g/dl (3.5-5.0); Alkaline Phosphatase 83 U/L (38-126); Blood Urea Nitrogen 19 mg/dl (9-20); Calcium 9.4 mg/dl (8.4-10.2); Carbon Dioxide 24 mmol/L (22-30); Chloride 99 mmol/L (98-107); Estimated Creatinine Clearance 51 ml/min; Glucose 134 mg/dl (70-99); Potassium 4.1 mmol/L (3.5-5.1); Sodium 135 mmol/L (135-145); Total Bilirubin 0.8 mg/dl (0.2-1.3); Total Protein 6.9 g/dl (6.3-8.2); eGFR > 60.00
[2025-01-03 17:45] LABS: Urine Granular Cast 0-2 /LPF (0); Urine Mucus Few; Urine Red Blood Cell 0-2 /HPF (0-2); Urine Squamous Cell 0-2 /LPF (Few)
[2025-01-03 17:46] LABS: Urine Bacteria Few (Negative); Urine White Cell 0-2 /HPF (0-5)
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
--- NOTE | 2025-01-03 22:05 | PTCARENOTE ---
Pt received from ED to rm [id number].
[2025-01-03] MEDS: NAMENDA 10 MG PO (22:31)
[2025-01-03] MEDS: LR 1000 IV (22:31)
[2025-01-03] MEDS: CRESTOR 40 MG PO (22:31)
[2025-01-03] MEDS: REMERON 30 MG PO (22:31)
[2025-01-03 22:52] LABS: Glucose - Point of Care 88 mg/dl (70-99)
[2025-01-04 07:15] VITALS: BP 134/72
[2025-01-04 08:02] LABS: Hematocrit 33.1 % (39.0-52.0); Hemoglobin 10.8 g/dL (13.0-18.0); Mean Corp Hgb Conc. 32.6 g/dL (33.0-37.0); Mean Corpuscular Hgb 27.6 pg (27.0-31.0); Mean Corpuscular Volume 84.7 fL (80.0-94.0); Mean Platelet Volume 11.3 fL (7.4-10.4); Platelet Count 114 10^3/uL (130-400); Red Blood Cell Count 3.91 10^6/uL (4.70-6.10); Red Cell Dist. Width 14.5 % (11.5-14.5); White Blood Cell Count 5.1 10^3/uL (4.8-10.8)
[2025-01-04 08:23] LABS: Procalcitonin 0.09 ng/ml (0.0-0.25)
[2025-01-04 08:28] LABS: Blood Urea Nitrogen 12 mg/dl (9-20); Calcium 8.8 mg/dl (8.4-10.2); Carbon Dioxide 21 mmol/L (22-30); Chloride 102 mmol/L (98-107); Estimated Creatinine Clearance 58 ml/min; Glucose 118 mg/dl (70-99); Potassium 3.6 mmol/L (3.5-5.1); Sodium 135 mmol/L (135-145); eGFR > 60.00
--- NOTE | 2025-01-04 08:53 | W.PN.HOSP.TC ---
Today's Communication/Plan
-
Tamiflu
PT/OT for dispo
cotn IVF
labs in AM
Assessment / Plan
Assessment / Plan
79yo M with advanced progressive dementia (as per family getting worse recently), HLD, DM, HTN started with fevers and confusion with weakness 2 days before admission, fell at home, found Influenza A
A/P:
#Fall w/o LOC
Head CT without acute findings
PT/OT
#Influenza A
no pneumonia on XR
Procalcitonin low
Symptomatic treatment
agreed for Tamiflu as of 01/04/25
#Chronic mild thrombocytopenia
since at least 2022
PCP follow up
#Essential HTN
decrease Atenolol to avoid hypotension
#DM type 2 with neuropathy
Insulin bolus, Accucheks, sliding scale insulin, DM diet
#HLD
#Dementia, unspecified
cont home meds
DVT ppx
DNR/DNI
I have spent at least 58min reviewing chart, test results, communication with family and direct patient care
Anticipated Discharge: > 48 hours
Subjective/Interval History
-
Date of Service: January 04, 2025
Objective Data
-
Labs:
Laboratory Results
01/04/25
07:18
WBC 5.1
Hgb 10.8 L
Hct 33.1 L
Plt Count 114 L
Sodium 135
Potassium 3.6
Chloride 102
Carbon Dioxide 21 L
BUN 12
Creatinine 0.9
Glucose 118 H
Calcium 8.8
Vital Signs:
Vital Signs
Temp Pulse Resp BP Pulse Ox
97.9 F 87 18 134/72 99
01/04/25 07:15 01/04/25 07:15 01/04/25 07:15 01/04/25 07:15 01/04/25 07:15
Review of Systems
-
Unable to obtain full review of systems at this time due to: Dementia
History Source: Patient
Physical Exam
-
General: No Apparent Distress
HEENT: Normocephalic
Respiratory: Clear to Auscultation
Cardiac: Regular Rhythm
GI: Soft, Nontender and Nondistended
Musculoskeletal: No Clubbing, No Cyanosis and No Edema
Neuro: Awake, Alert and No Motor Deficits; Negative Oriented
Psych: Calm and Apparent Dementia
[2025-01-04 09:08] LABS: Glucose - Point of Care 116 mg/dl (70-99)
[2025-01-04 09:12] LABS: Hepatitis C Antibody Negative (Negative)
[2025-01-04] MEDS: NOVOLOG FLEXPEN-LOW RESISTANCE SC (09:20)
[2025-01-04] MEDS: TAMIFLU 75 MG PO ×2 (09:22→19:29)
[2025-01-04] MEDS: TENORMIN 25 MG PO (09:22)
[2025-01-04] MEDS: ASPIR LOW (ENTERIC COATED) 81 MG PO (09:23)
[2025-01-04] MEDS: HEPARIN 5000 UNITS SC ×2 (09:23→19:25)
[2025-01-04 10:06] VITALS: BP 122/68; BP 147/72; PULSE 91
[2025-01-04 10:09] VITALS: BP 122/68; BP 147/72
[2025-01-04 10:16] LABS: Glycohemoglobin (HgbA1c) 6.8 % (4.0-5.6)
[2025-01-04 11:31] LABS: Glucose - Point of Care 178 mg/dl (70-99)
[2025-01-04] MEDS: NOVOLOG FLEXPEN-LOW RESISTANCE 1 UNITS SC (11:35)
[2025-01-04] MEDS: LR 1000 IV (11:35)
[2025-01-04 15:17] VITALS: BP 112/65; BP 98/75; PULSE 77
--- NOTE | 2025-01-04 16:13 | CM ---
internal audit senior manager reviewed patient's chart and met with patient and spoke with spouse by phone, patient lives with spouse in a 2 story home, patient is independent with adl's and ambulation, no dme, plan is to home with spouse and visiting nurses when
stable, options reviewed and spouse has selected [facility].
PCP: Dr. Mojica
Pharmacy: [facility] in [place].
Plan; Home with [facility], [facility] liaison notified.
--- NOTE | 2025-01-04 16:19 | VNURNOTE ---
Home Health Liaison spoke with patient's spouse Tori to discuss [facility] nurse/therapy, visits, schedule and homebound status. She is agreeable and understands that visits at home will be 2-3 x per week to assess and teach medical management. She is
familiar with [facility], patient has had us in the past. Spouse is aware that [facility] will contact them for start of care in 1-2 days after discharge from .
[facility] referral completed in [facility].
[2025-01-04 16:35] LABS: Glucose - Point of Care 209 mg/dl (70-99)
[2025-01-04] MEDS: NOVOLOG FLEXPEN-LOW RESISTANCE 2 UNITS SC (17:14)
[2025-01-04] MEDS: LANTUS 0.1 UNITS SC (17:18)
[2025-01-04] MEDS: CRESTOR 40 MG PO (19:29)
[2025-01-04] MEDS: NAMENDA 10 MG PO (19:29)
[2025-01-04] MEDS: REMERON 30 MG PO (19:30)
[2025-01-04 20:53] VITALS: BP 118/81; BP 138/73; BP 146/69; PULSE 74; PULSE 78; PULSE 82
[2025-01-04 21:40] LABS: Glucose - Point of Care 105 mg/dl (70-99)
[2025-01-04 23:45] VITALS: BP 152/69
[2025-01-05] MEDS: LR 1000 IV (01:32)
[2025-01-05 07:08] VITALS: BP 127/77
[2025-01-05 08:15] LABS: Glucose - Point of Care 148 mg/dl (70-99)
[2025-01-05] MEDS: NOVOLOG FLEXPEN-LOW RESISTANCE SC (08:18)
[2025-01-05] MEDS: ASPIR LOW (ENTERIC COATED) 81 MG PO (08:25)
[2025-01-05] MEDS: TENORMIN 25 MG PO (08:26)
[2025-01-05] MEDS: HEPARIN 5000 UNITS SC (08:27)
[2025-01-05] MEDS: TAMIFLU 75 MG PO (08:27)
--- NOTE | 2025-01-05 10:52 | W.PN.HOSP.TC ---
Today's Communication/Plan
-
dc
Assessment / Plan
Assessment / Plan
79yo M with advanced progressive dementia (as per family getting worse recently), HLD, DM, HTN started with fevers and confusion with weakness 2 days before admission, fell at home, found Influenza A. As fevers resolved - patient back to baseline
mental status as confirmed with son bedside. No concernsfor bacterial component with normal procalcitonin and clinical improvement. PT/OT recommended home. Medically stable for d/c
A/P:
#Fall w/o LOC
Head CT without acute findings
PT/OT
#Influenza A
no pneumonia on XR
Procalcitonin low
Symptomatic treatment
agreed for Tamiflu as of 01/04/25
#Chronic mild thrombocytopenia
since at least 2022
PCP follow up
#Essential HTN
decrease Atenolol to avoid hypotension
#DM type 2 with neuropathy
Insulin bolus, Accucheks, sliding scale insulin, DM diet
#HLD
#Dementia, unspecified
cont home meds
DVT ppx
DNR/DNI
I have spent at least 58min reviewing chart, test results, communication with family and direct patient care
Anticipated Discharge: Today
Subjective/Interval History
-
Date of Service: January 05, 2025
Objective Data
-
Labs:
Laboratory Results
01/05/25
06:00
WBC Pending
Hgb Pending
Hct Pending
Plt Count Pending
Sodium Pending
Potassium Pending
Chloride Pending
Carbon Dioxide Pending
BUN Pending
Creatinine Pending
Glucose Pending
Calcium Pending
Total Bilirubin Pending
AST Pending
ALT Pending
Alkaline Phosphatase Pending
Vital Signs:
Vital Signs
Temp Pulse Resp BP Pulse Ox
98.3 F 79 18 127/77 98
01/05/25 07:08 01/05/25 07:08 01/05/25 07:08 01/05/25 07:08 01/05/25 07:08
I&O
01/04/25 01/05/25 01/06/25
06:59 06:59 06:59
Intake Total 720 / 720
Balance 720 / 720
Review of Systems
-
History Source: Patient
All other systems: Reviewed and negative
Physical Exam
-
General: No Apparent Distress and Comfortable
HEENT: Normocephalic
Cardiac: Regular Rhythm
GI: Soft, Nontender and Nondistended
Neuro: Awake and Oriented
Psych: Calm and Apparent Dementia
--- NOTE | 2025-01-05 10:54 | W.DCSUMMARY ---
Discharge Summary
Discharge Data
Date of Admission: 01/03/25
Date of Discharge: 01/05/25
-
Pending Results: No
Hospital Course
79yo M with advanced progressive dementia (as per family getting worse recently), HLD, DM, HTN started with fevers and confusion with weakness 2 days before admission, fell at home, found Influenza A. As fevers resolved - patient back to baseline
mental status as confirmed with son bedside. No concernsfor bacterial component with normal procalcitonin and clinical improvement. PT/OT recommended home. Medically stable for d/c
I have spent at least 58min reviewing chart, test results, communication with family and direct patient care
Patient was managed for:
#Fall w/o LOC
#Influenza A
#Chronic mild thrombocytopenia
#Essential HTN
#DM type 2 with neuropathy
#HLD
#Dementia, unspecified
Discharge Plan
-
Patient Disposition: Home (Routine Discharge)
Discharge Diagnosis/Procedures: Influenza
Diet: Diabetic, Carb Controlled
Activity: As tolerated
Referrals:
Aram Mojica DO [Family Provider] -
Prescriptions:
New
acetaminophen 325 mg Tablet
650 mg PO Q4HPRN PRN (Reason: Mild Pain / Temp > 101) Qty: 30 0RF
oseltamivir 75 mg Capsule
75 mg PO BID Qty: 8 0RF
Continued
aspirin 81 mg Tablet,Delayed Release (Dr/Ec)
81 mg PO DAILY Qty: 0
atenolol 50 mg Tablet
50 mg PO DAILY Qty: 0
rosuvastatin 40 mg Tablet
40 mg PO HS
mirtazapine 30 mg Tablet
30 mg PO HS Qty: 30 0RF
pioglitazone 30 mg Tablet
30 mg PO DAILY Qty: 30 0RF
memantine 10 mg Tablet
10 mg PO HS
insulin aspart U-100 100 unit/mL (3 mL) Insulin Pen
8 unit SC AC 30 Days Qty: 7.2 0RF
cyanocobalamin (vitamin B-12) 1,000 mcg Tablet
1,000 mcg PO HS
insulin glargine [Lantus Solostar U-100 Insulin] 100 unit/mL (3 mL) insulin pen
10 unit SC QPM
Discharge Orders:
Discharge Patient (As Directed); Ordered 01/05/25
Ordered By: Phu Andrade
Discharge Date and Time
Print Language: SPANISH
[2025-01-05 11:36] LABS: Glucose - Point of Care 205 mg/dl (70-99)
--- NOTE | 2025-01-05 12:06 | CM ---
Plan: discharge to home with [facility] services; will transport home
[2025-01-05] MEDS: NOVOLOG FLEXPEN-LOW RESISTANCE 2 UNITS SC (12:09)
== END 2025-01-05 13:33 | disposition home health service (06) | DRG 871 ==
LOC: 4 WEST ACU 22:04
PROVIDERS: ADMITTING PHYSICIAN Hospitalist; ATTENDING PHYSICIAN Internal Medicine; EMERGENCY PHYSICIAN Student in an Organized Health Care Education/Training Program; FAMILY PHYSICIAN Family Medicine
DX: A41.89 Other specified sepsis (principal); G92.8 Other toxic encephalopathy; F02.80 Dementia in other diseases classified elsewhere, unspecified severity, without behavioral disturbance, psychotic disturbance, mood disturbance, and anxiety; J10.1 Influenza due to other identified influenza virus with other respiratory manifestations; J10.81 Influenza due to other identified influenza virus with encephalopathy; E78.00 Pure hypercholesterolemia, unspecified; I10 Essential (primary) hypertension; G30.9 Alzheimer's disease, unspecified; D69.6 Thrombocytopenia, unspecified; E11.40 Type 2 diabetes mellitus with diabetic neuropathy, unspecified; I25.10 Atherosclerotic heart disease of native coronary artery without angina pectoris; S00.81XA Abrasion of other part of head, initial encounter; W01.190A Fall on same level from slipping, tripping and stumbling with subsequent striking against furniture, initial encounter; Y93.89 Activity, other specified; Y92.003 Bedroom of unspecified non-institutional (private) residence as the place of occurrence of the external cause; Z66 Do not resuscitate; Z79.82 Long term (current) use of aspirin; Z79.4 Long term (current) use of insulin; Z95.1 Presence of aortocoronary bypass graft; Z95.5 Presence of coronary angioplasty implant and graft; Z90.49 Acquired absence of other specified parts of digestive tract; Z88.2 Allergy status to sulfonamides; Z11.52 Encounter for screening for COVID-19; Z79.84 Long term (current) use of oral hypoglycemic drugs
CPT/HCPCS: 70450; 71046; 80048; 80053; 81003; 81015; 82962; 83036; 83605; 84145; 85025; 85027; 86803; 87040; 87502; 87811; 93005; 96360; 97162; 97166; 99285